=== PATIENT | female | born 1970 | race Caucasian/White ===

== ENCOUNTER 2021-10-29 11:21 | Outpatient (CLI) | payer OTHER, SELFPAY ==
--- NOTE | ~2021-10-29 | US_ITS ---
EXAMINATION: US transvaginal DATE: 10/29/2021 12:36 INDICATION: Left lower quadrant abdominal pain and abnormal uterine/vaginal bleeding. TECHNIQUE: Multiple transvaginal sonographic images of the pelvis were obtained. COMPARISON: None. FINDINGS: The uterus measures 7.4 x 4.3 x 4.9 cm. The endometrial complex measures 3-4 mm in thickness. 3 mm a nechoic nabothian cyst at the cervix. The right ovary measures 2.6 x 1.8 x 1.9 cm. The left ovary gricel sures 2.3 x 1.8 x 2.4 cm. 8-9 mm anechoic follicle in the left ovary. There is normal vascular flow w ith arterial waveforms identified in both ovaries on color Doppler. There is no free fluid in the pel vis. IMPRESSION: 1. Normal pelvic ultrasound. Reviewed, dictated and finalized at location B. TER MECHANIC
--- NOTE | ~2021-10-29 | US_ITS ---
EXAMINATION: US abdomen complete DATE: 10/29/2021 12:35 INDICATION: Left upper quadrant abdominal pain. TECHNIQUE: Multiple grayscale and Doppler ultrasound images of the abdomen were obtained. COMPARISON: None FINDINGS: The pancreas is obscured by bowel gas. The liver is normal without focal lesion. No liver s urface nodularity. There is normal flow in main portal vein. The gallbladder is absent. The common du ct is normal and measures 4 mm. The kidneys are normal in size. The spleen is normal in size. Abdomin al aorta is normal in caliber. Inferior vena cava is normal. IMPRESSION: 1. No etiology for the patient's symptoms. Reviewed, dictated and finalized at location A. AGE CLERK
== END 2021-10-29 11:22 | disposition home or self-care (01) ==
PROVIDERS: PCP Family Medicine Adolescent Medicine; Visit Provider Physician Assistant
DX: R10.12 Left upper quadrant pain (principal); R11.0 Nausea; N93.9 Abnormal uterine and vaginal bleeding, unspecified
CPT/HCPCS: 76700; 76830

== ENCOUNTER 2022-08-22 14:43 | Emergency (ER) | payer OTHER, SELFPAY ==
[2022-08-22 14:53] VITALS: BP 146/82; PULSE 70; RESP 20; TEMP 36.2; O2SAT 100
[2022-08-22] MEDS: SODIUM CHLORIDE 0.9% IV 1,000 ML 999 ML IV CONT (15:47)
[2022-08-22 15:48] VITALS: BP 120/83; BP 121/90; BP 130/88; PULSE 55; PULSE 60; PULSE 65
[2022-08-22 15:56] LABS: Basophils Absolute Auto 0.1 K/mm3 (0.0-0.1); Basophils Percent Auto 0.6 % (0.2-1.2); Eosinophils Absolute Auto 0.2 K/mm3 (0-0.3); Eosinophils Percent Auto 2.2 % (0-4.4); Hematocrit 34.3 % (37.0-47.0); Hemoglobin 10.6 g/dL (12.0-15.0); Immature Granulocyte Absolute 0.03 K/mm3 (0.00-0.031); Immature Granulocyte Percent A 0.3 % (0-0.5); Lymphocytes Absolute Auto 1.66 K/mm3 (0.9-3.2); Lymphocytes Percent Auto 16.4 % (18.3-44.2); Mean Corpuscular HGB Conc 30.9 g/dl (32-36); Mean Corpuscular Hemoglobin 27.2 pg (26-34); Mean Corpuscular Volume 88.2 fl (80-100); Mean Platelet Volume 9.1 fl (7.4-10.4); Monocytes Absolute Auto 0.6 K/mm3 (0.1-0.6); Monocytes Percent Auto 6.3 % (2.6-8.5); Neutrophils Absolute Auto 7.5 K/mm3 (1.3-6.7); Neutrophils Percent Auto 74.2 % (45.5-73.1); Platelet Count Result 311 k/mm3 (150-375); Red Blood Count 3.89 M/mm3 (4.2-5.4); Red Cell Distribution Width 15.9 % (11.5-14.5); White Blood Count 10.1 K/mm3 (4.5-10.0)
[2022-08-22 16:06] LABS: Partial Thromboplastin Time 27.3 SECONDS (22.3-36.8); Prothrombin Time 13.1 Seconds (11.1-14.7)
[2022-08-22 16:07] LABS: Anion Gap 12 mmol/L (8-16); Blood Urea Nitrogen 15 mg/dL (7-17); Calcium 8.4 mg/dL (8.4-10.2); Carbon Dioxide 26 mmol/L (22-30); Chloride 100 mmol/L (98-107); Estimated CRCL calculation 67 ml/min; Estimated Glomerular Filt Rate > 60; Glucose 109 mg/dL (65-110); Potassium 3.9 mmol/L (3.4-5.0); Sodium 138 mmol/L (137-145)
--- NOTE | 2022-08-22 16:52 | ED.FEMALEGU ---
HPI - Female Genitourinary General Chief complaint: Vaginal Bleeding Stated complaint: vaginal bleeding Time Seen by Provider: 08/22/22 15:09 History of Present Illness HPI Narrative: Patient is a 52-year-old female who presents to the ER with vaginal bleeding. Is been ongoing for 36 hours. She reports she is changing a tampon every hour and is having clots around it. She is doing feel weak and lightheaded. She was referred here by her art psychotherapist for evaluation of her blood counts. Patient has history of irregular periods and her last cycle was 3 months ago. She is having cramping with this. No known bleeding disorder. No loss of consciousness. Related Data Allergies Allergy/AdvReac Type Severity Reaction Status Date / Time No Known Allergies Allergy Verified 08/22/22 15:40 Review of Systems Review of Systems: All systems reviewed & are unremarkable except as noted in HPI and below Constitutional: Constitutional: Denies chills and Reports fatigue Cardiovascular: Cardiovascular: Denies chest pain, Denies rapid heart rate and Denies radiating jaw, neck or arm pain Respiratory: Respiratory: Denies cough and Denies dyspnea Gastrointestinal: Gastrointestinal: Reports abdominal pain, Denies nausea and Denies vomiting Genitourinary: Genitourinary: Reports abnormal vaginal bleeding, Denies nocturia and Denies dysuria PMFSH Past Medical History Medical History Chronic pain Low back pain Polycystic ovarian syndrome Surgical History Surgical History H/O gastric sleeve History of cholecystectomy Social History Social History Smoking status: Never smoker Alcohol intake: current Alcohol use details: rarely Substance use type: does not use Additional living arrangements comments: ex- and children Gender identity (if verbalized by the patient): Female Sexual Orientation (if Verbalized by the Patient): Straight or Heterosexual Spiritual care concerns: No Agree to blood products: Yes Exam Narrative: GENERAL: Well-appearing, well-nourished, and in no acute distress. HEAD: Normocephalic, atraumatic. CHEST: Clear to auscultation. No respiratory distress. HEART: Regular rate and rhythm. Normal peripheral pulses. ABDOMEN: Soft, nontender, nondistended. : Normal external genitalia. No amount of clotted blood within the vagina. Cervix open approximately 1 cm. No friability. EXTREMITIES: Normal range of motion. No edema. SKIN: Warm, dry, no rash. NEURO: Alert and oriented x3. PSYCH: Normal mood and affect. Course Course Emergency Course: Discussed case with Dr. Villela as above. Recommended placing patient on tranexamic acid 1300 mg 3 times daily for the next 5 days. Patient should contact the office for close follow-up. Patient verbalized understanding treatment plan. Discharge. Vital Signs Vital signs: Vital Signs Temperature 97.2 F L 08/22/22 14:53 Pulse Rate 70 08/22/22 14:53 Respiratory Rate 20 08/22/22 14:53 Blood Pressure 146/82 H 08/22/22 14:53 Pulse Oximetry 100 08/22/22 14:53 Oxygen Delivery Room Air 08/22/22 14:53 Temperature 97.2 F L 08/22/22 14:53 Pulse Rate 65 08/22/22 15:48 Respiratory Rate 20 08/22/22 14:53 Blood Pressure 121/90 08/22/22 15:48 Pulse Oximetry 100 08/22/22 14:53 Oxygen Delivery Room Air 08/22/22 14:53 MDM - Female Genitourinary Lab Data Result diagrams: 08/22/22 15:46 08/22/22 15:46 Labs: Lab Results 08/22/22 08/22/22 08/22/22 Range/Units 15:46 15:46 15:46 WBC 10.1 H (4.5-10.0) K/mm3 RBC 3.89 L (4.2-5.4) M/mm3 Hgb 10.6 L (12.0-15.0) g/dL Hct 34.3 L (37.0-47.0) % MCV 88.2 (80-100) fl MCH 27.2 (26-34) pg MCHC 30.9 L (32-36) g/dl RDW 15.9 H (11.5-14.5) % Plt
[2022-08-22 17:53] VITALS: BP 130/81; PULSE 60; RESP 18; O2SAT 100
== END 2022-08-22 18:02 | disposition home or self-care (01) ==
PROVIDERS: Emergency Provider Emergency Medicine; PCP Obstetrics & Gynecology
DX: N92.0 Excessive and frequent menstruation with regular cycle (principal); E28.2 Polycystic ovarian syndrome; Z98.84 Bariatric surgery status
CPT/HCPCS: 36415; 80048; 85025; 85610; 85730; 96360; 96361; 99284; J7030

== ENCOUNTER 2022-09-27 09:46 | Outpatient (CLI) | payer OTHER, SELFPAY | END 2022-09-27 09:47 | disposition home or self-care (01) | PROVIDERS: PCP Family Medicine Adolescent Medicine; Visit Provider Obstetrics & Gynecology | DX: N81.4 Uterovaginal prolapse, unspecified (principal); Z01.818 Encounter for other preprocedural examination | CPT/HCPCS: 36415; 86850; 86900; 86901 ==

== ENCOUNTER 2022-10-01 01:33 | Day surgery (SDC) | payer OTHER, SELFPAY ==
[2022-09-23 13:24] VITALS: BMI 31.8
--- NOTE | 2022-09-23 13:30 | PC.NURSE ---
Report to the Outpatient Waiting Room, entrance under the green pavilion located off [facility], at time 7:30 on date 10/01/22. Planned Procedure Time: 9:30. Time changes happen often and if your time is changed the preop area will call you the afternoon before. - You and your visitor will be asked to self-screen and do not enter if you have any COVID symptoms. - Only one visitor is requested with a max of two and NO children visitors are allowed at this time. - The patient visitor may be requested to leave or wait in car when not with patient due to distancing restrictions. - A mask is optional within the hospital. Patients may have clear liquids (water, carbonated beverages, clear teas, apple juice) until 3 hours prior to surgery (6:30) with a maximum of 20 ounces. - No food from midnight until time of surgery Take the following medications with a SIP of water the morning of surgery: LORAZEPAM AND PAIN PILL IF NEEDED Medications to discontinue per physician: N/A Date to take last dose: N/A Please no make-up, nail tunisian, hairspray, perfume, deodorant, or body powder the day of surgery. No jewelry (including any body piercings) or valuables the day of surgery, leave them at home. Please take a shower or bath the night before, or the morning of, surgery with an antibacterial soap. Wear comfortable, loose fitting clothing. - Jewelry must be removed prior to entering the operating room. Rings and piercings that are not removed may be cut off. - The hospital will not accept responsibility for valuables. - Please leave all valuables, including medications, at home the day of surgery. If you are going home after surgery, a licensed taxi truck driver must drive you home. - NO public transportation without another adult if you receive anesthesia. - We recommend that an adult stay with you for 24 hours following discharge. - We also recommend that you do not drive, make important decision, drink alcoholic beverages, or take any drugs that were not prescribed by your health care provider for at least 24 hours after your discharge time. Follow any additional instructions given to you from your surgeon. If you or anyone in your household have experienced Covid symptoms in the past week, please notify your surgeon or the nurse liaison at the phone number below for possible testing. Telephone instructions given to PT - LORENA RIBEIRO and asked if any additional questions and then verbalized understanding. Patient advised to call surgeon office or pre surgery nurse liaison [phone] if any additional questions.
--- NOTE | 2022-09-29 07:50 | PM.IMHP ---
H&P: HPI History of Present Illness Date/Time: 09/29/22 07:50 Chief Complaint: bleeding refractory to medical therapy Narrative: is a 52-year-old 1 para 1 who is admitted for robotic hysterectomy and bilateral Salpingo-oophorectomy secondary to continued irregular bleeding. this patient has had multiple episodes of heavy bleeding and has been on iron for her anemia. She has had negative findings under endometrium and has been unsuccessful with hormonal therapy. Risks and benefits of this procedure reviewed including not exclusive of , aspiration pneumonia, bleeding, transfusion, perforation injury to bowel, bladder, ureters, or other internal organs with need for open laparotomy. She received the ACOG handout entitled hysterectomy as well as de Al handout. She had all questions answered and asked to proceed PMFSH Past Medical History Medical History Chronic pain Low back pain Polycystic ovarian syndrome Surgical History Surgical History H/O gastric sleeve History of cholecystectomy Social History Social History Smoking status: Never smoker Alcohol intake: current Alcohol use details: RARE Substance use: current Substance use type: marijuana Additional living arrangements comments: ex- and children Gender identity (if verbalized by the patient): Female Sexual Orientation (if Verbalized by the Patient): Straight or Heterosexual Spiritual care concerns: No Agree to blood products: Yes Meds Home Medications and Allergies Home Medications Medication Instructions Recorded Confirmed Type ondansetron 4 mg disintegrating 4 mg PO Q8H PRN nausea and 07/15/22 09/23/22 Rx tablet vomiting #20 tabs fluticasone propionate 50 1 - 2 spray intranasal BID #16 mL 07/28/22 09/23/22 Rx mcg/actuation nasal spray,suspension (Flonase Allergy Relief) dextroamphetamine-amphetamine ER 20 mg PO DAILY #30 caps 07/30/22 09/23/22 Rx 20 mg 24hr capsule,extend release (Adderall XR) lorazepam 0.5 mg tablet 0.5 mg PO TID PRN anxiety #30 tabs 09/02/22 09/23/22 Rx triamcinolone acetonide 0.1 % 1 applic topical BID #80 grams 09/02/22 09/23/22 Rx topical cream oxycodone-acetaminophen 10 mg-325 1 tablet PO Q6H PRN pain #120 tabs 09/15/22 09/23/22 Rx mg tablet Allergies Allergy/AdvReac Type Severity Reaction Status Date / Time No Known Allergies Allergy Verified 09/23/22 13:21 Exam Const: General: cooperative, healthy appearing, comfortable and overweight Orientation/consciousness: oriented to person, oriented to place and oriented to time HENMT: Head: normal to inspection Resp: Effort & Inspection: normal respiratory effort Cardio: Rate: regular rate Rhythm: regular rhythm Heart sounds: S1 normal heart sound present and S2 normal heart sound present GI: Inspection: normal to inspection, striae and other ( excess skin noted) : External Female Exam: normal external appearance Speculum Exam - Vagina: normal appearance of the vagina and vaginal bleeding Speculum Exam - Cervix: normal appearance of the cervix Bimanual exam- vagina & uterus: non-tender Bimanual Exam- Adnexa, other: normal adnexae Assessment and Plan Assessment and plan (1) Vaginal bleeding: Code(s): N93.9 - Abnormal uterine and vaginal bleeding, unspecified Status: Acute (2) Enlarged uterus: Code(s): N85.2 - Hypertrophy of uterus Status: Acute Plan robotic total vaginal hysterectomy and bilateral salpingo-oophorectomy
[2022-10-01] VITALS (11 sets, daily range): BP systolic 109–162; BP diastolic 60–87; PULSE 44–79; RESP 12–16; TEMP 36.3–36.8; O2SAT 96–100
--- NOTE | 2022-10-01 07:13 | WPDHPUPDATE1 ---
History and Physical Update Update Date/Time: 10/01/22 07:13 History and Physical has been reviewed, including an updated exam of the patient. There are NO changes in the patient's condition. Risks, benefits, and alternatives have been discussed and questions answered. Patient agrees to proceed with procedure.
--- NOTE | 2022-10-01 08:12 | WPDANESEPPF ---
Anes - Initial Pre Proc Eval Procedure: Operation Date: 10/01/22 09:30 Proposed Procedures p Robotic Assisted Total Vaginal Hysterectomy with Bilateral Salpingo-oophorectomy - Jose Zelaya MD Date/Time: 10/01/22 08:12 Surgeon: Jose Zelaya MD Pre Op Diagnosis: Uterine Prolapse, Irrg Bleed, Pelvic Pain Patient Data Age: 52 Gender: F Height: 1.6 m Weight: 81.7 kg Allergies Allergy/AdvReac Type Severity Reaction Status Date / Time No Known Allergies Allergy Verified 10/01/22 07:59 Home Medications Medication Instructions Recorded Confirmed Type ondansetron 4 mg disintegrating 4 mg PO Q8H PRN nausea and 07/15/22 10/01/22 Rx tablet vomiting #20 tabs fluticasone propionate 50 1 - 2 spray intranasal BID #16 mL 07/28/22 09/23/22 Rx mcg/actuation nasal spray,suspension (Flonase Allergy Relief) dextroamphetamine-amphetamine ER 20 mg PO DAILY #30 caps 07/30/22 10/01/22 Rx 20 mg 24hr capsule,extend release (Adderall XR) lorazepam 0.5 mg tablet 0.5 mg PO TID PRN anxiety #30 tabs 09/02/22 10/01/22 Rx triamcinolone acetonide 0.1 % 1 applic topical BID #80 grams 09/02/22 10/01/22 Rx topical cream oxycodone-acetaminophen 10 mg-325 1 tablet PO Q6H PRN pain #120 tabs 09/15/22 10/01/22 Rx mg tablet hydrocodone 5 mg-acetaminophen 325 1 tablet PO Q4H PRN pain #30 tabs 10/01/22 Rx mg tablet hydrocodone 5 mg-acetaminophen 325 1 tablet PO Q4H PRN pain #30 tabs 10/01/22 Rx mg tablet Patient hx anesthesia problems: post op nausea/vomiting Family hx anesthesia problems: post op nausea/vomiting Results Review: All pre-operative results and documents have been reviewed as part of the pre-operative evaluation. [facility] Past Medical History Medical History ADHD (attention deficit hyperactivity disorder), inattentive type Anxiety Chronic pain Low back pain Polycystic ovarian syndrome Surgical History Surgical History H/O gastric sleeve History of cholecystectomy Social History Social History Smoking status: Never smoker Alcohol intake: current Alcohol use details: RARE Substance use: current Substance use type: marijuana Living arrangements: with family Additional living arrangements comments: ex- and children Gender identity (if verbalized by the patient): Female Sexual Orientation (if Verbalized by the Patient): Straight or Heterosexual Spiritual care concerns: No Agree to blood products: Yes Anes - Eval Final PreProcedure Day of Procedure 10/01/22 08:12 Patient weight: obese Heart: regular rate and rhythm Lungs: clear to auscultation Airway: Mallampati scale class III Neurological: alert and oriented Last oral intake: >/= 8 hours ASA classification: III Emergent: no Anesthetic plan: proceed Anesthesia type and monitoring: general ETT and standard monitoring Results Review: All pre-operative results and documents have been reviewed as part of the pre-operative evaluation. Informed Consent: The patient's anesthetic plan and its attendant risks and benefits were discussed with the patient/family/POA. Questions were solicited and answers provided to the satisfaction of the patient/family/POA.
[2022-10-01] MEDS: LACTATED RINGERS 1,000 ML 30 ML IV CONT ×2 (08:20→10:40)
[2022-10-01] MEDS: SCOPOLAMINE 1.5 MG PATCH TRANSDERM (09:03)
[2022-10-01] MEDS: KETOROLAC 15 MG/ML VIAL (*BKC) IV PUSH (09:04)
[2022-10-01] MEDS: ceFAZolin 2 GM/D5W 50 ML 2 GM/50 ML BAG IVPB (09:28)
--- NOTE | 2022-10-01 10:34 | P.OP_ITS ---
Procedure Note - Detailed Date of Procedure 10/01/22 Pre-op Diagnosis Uterine Prolapse, Irrg Bleed, Pelvic Pain Post-op Diagnosis Same Procedure Performed Robotic total vaginectomy and bilateral salpingo-oophorectomy Surgeon Jose Zelaya MD Anesthesia General Indications is a 52-year-old female with excessive heavy bleeding and pelvic pain which has been refractory to medical therapy. Findings Enlarged uterus. Uterine prolapse. Normal-appearing ovaries and tubes Description of Procedure the patient was prepped draped in the normal sterile fashion placed in the dorsal lithotomy position. Under excellent general trach anesthesia weighted speculum placed in posterior fornix vagina. Anterior lip of the cervix grasped with single-tooth tenaculum. Uterus sounded to 10cm. Serial dilatation with fragmented dilators performed followed by passes the 8. MARY ELLEN and the 3. 0.5 cold cup. Next the 16 Divehi catheter was placed in the bladder and bladder drained of clear urine. The weighted speculum was removed as was the single- tooth and the gloves were changed. A supraumbilical incision made the Veress needle passed in the abdomen. Abdomen filled with CO2 gas to 15mm Hg. 5Mm trocar advanced in the abdomen. Downside visualized no injury seen. Gas reattached. Patient placed in Trendelenburg and right left lateral quadrant incision made. The 8mm trocars advanced under direct visualization of the right left lower quadrant. A right upper quadrant incision made the 8mm trocar advanced under direct visualization assuring no injury. Robot was docked. Attention was turned to the curriculum counselor. The left round ligament grasped, burned, cut. A bladder flap was formed by sharply dissecting the peritoneum and reflecting the bladder caudally from the uterus cervix to the opposite round ligament which was clamped, burned, cut. Next infundibulopelvic structure on the left was skeletonized clamped, burned, brought to the level of previously cut round ligament. Like fashion the right infundibulopelvic structure was skeletonized remove the right ovary tube clamped, burned, cut brought to the previously cut ligament. Next the cardinal broad ligaments on the left were serially skeletonized clamping burning and cutting until the uterine vessels could be seen on the left. These were large and tortuous and individually clamped, burned, cut. In like fashion the cardinal broad ligaments on the right were serially skeletonized clamped, burned, cut until the uterine vessels could be seen on the right. These were then clamped, burned, cut. Excellent blanching was seen at that point. And a colpotomy incision was made in the uterus cervix and tubes as well as ovaries removed through the vagina. The vagina was then closed with continuous running 0V lock from lateral edge to lateral edge back to the midline. Hemostasis was assured and blood loss estimated 25cc the robot was undocked. The gas removed from the abdomen. The trocars removed incisions closed with 4 Monocryl glue. The instruments removed from vagina patient was awakened. She went to recovery in satisfactory condition. All sponge, needle, instrument counts were correct. There were no immediate complications Estimated Blood Loss 25 Drains No Packing No Pathology Yes Complications No immediate complications Condition Stable Disposition PACU
[2022-10-01] MEDS: fentaNYL CITRATE INJ (*CRX) 100 MCG/2 ML VIAL 25 MCG IV PUSH ×7 (11:08→11:44)
[2022-10-01] MEDS: HYDROmorphone HCL INJ (*CRX) 1 MG/ML SYR IV PUSH ×2 (11:50→12:02)
[2022-10-01] MEDS: ONDANSETRON INJ 4 MG/2 ML VIAL IV PUSH (11:50)
--- NOTE | 2022-10-01 12:12 | PC.NURSE ---
This patient, June Smith, was received from PACU on 10/01/22 at 1212. Patient oriented to unit policies and routines. No family members at bedside.
[2022-10-01] MEDS: KETOROLAC 30 MG/ML VIAL (*BKC) IV PUSH ×2 (12:27→18:08)
[2022-10-01] MEDS: DEXTROSE 5%/LACTATED RINGERS 1,000 ML 125 ML IV CONT (12:30)
[2022-10-01] MEDS: HYDROcodone/acetaminophen (*CRX) 10-325 MG TABLET 1 TAB PO ×3 (14:56→20:59)
[2022-10-01] MEDS: SIMETHICONE 80 MG TAB.CHEW PO ×3 (14:56→20:59)
--- NOTE | 2022-10-01 14:59 | P.DS_ITS ---
DS: Admitting Diagnosis Discharge Date 10/02/2022 Admitting Diagnosis vaginal bleeding/enlarged uterus DS: Discharge Diagnosis Discharge Diagnosis (1) Enlarged uterus: Code(s): N85.2 - Hypertrophy of uterus Status: Acute (2) Vaginal bleeding: Code(s): N93.9 - Abnormal uterine and vaginal bleeding, unspecified Status: Acute DS: Summary Hospital Course Reason for hospitalization: patient was admitted for robotic total vaginal hysterectomy and bilateral salpingo-oophorectomy Hospital Course: patient underwent robotic total vaginal hysterectomy bilateral salpingo- oophorectomy on 10/01/2022. Hospital course was unremarkable. She remained afebrile. She was up, voiding without difficulty, ambulating, generally without complaints. Time Spent with Patient Time attestation: Total time spent providing and/or coordinating discharge services: Exam Const: General: cooperative, healthy appearing and comfortable Nutritional Appearance: average body habitus Orientation/consciousness: oriented to person, oriented to place and oriented to time HENMT: Head: normal to inspection Resp: Effort & Inspection: normal respiratory effort GI: Inspection: normal to inspection and incision ( Wounds are clean dry and intact) DS: Data Data Completed and Pending Pending studies at discharge: Pending at discharge 10/01/22 10:19 Surgical [PTH] Routine Discharge Plan Discharge Patient Disposition: Home, Self-Care Discharge Instructions: Call or return if temperature above 100.4? F, increased abdominal pain, increased vaginal bleeding or any new problems. Patient Instructions: Hysterectomy (DC) Stand Alone Forms: General Discharge Instructions Follow-up/Referrals: Jose Bustamante MD [Physician] - 2 Weeks Discharge Medications: New hydrocodone-acetaminophen 5-325 mg tablet 1 tablet PO Q4H PRN (Reason: pain) Qty: 30 0RF hydrocodone-acetaminophen 5-325 mg tablet 1 tablet PO Q4H PRN (Reason: pain) Qty: 30 0RF ondansetron 4 mg tablet,disintegrating 4 mg PO Q6H PRN (Reason: nausea and vomiting) Qty: 20 0RF estradiol 0.05 mg/24 hr patch weekly 1 patch transdermal WEEKLY Qty: 4 0RF Continued fluticasone propionate [Flonase Allergy Relief] 50 mcg/actuation spray,suspension 1 - 2 spray intranasal BID Qty: 16 3RF Label Comments: PT DOES NOT TAKE DAILY Rx Instructions: administer into each nostril ondansetron 4 mg tablet,disintegrating 4 mg PO Q8H PRN (Reason: nausea and vomiting) Qty: 20 0RF dextroamphetamine-amphetamine [Adderall XR] 20 mg capsule,extended release 24hr 20 mg PO DAILY Qty: 30 0RF Label Comments: PT DOES NOT TAKE DAILY lorazepam 0.5 mg tablet 0.5 mg PO TID PRN (Reason: anxiety) Qty: 30 2RF Rx Instructions: take 1/2 to 1 tablet three times daily as needed triamcinolone acetonide 0.1 % cream 1 applic topical BID Qty: 80 1RF oxycodone-acetaminophen 10-325 mg tablet 1 tablet PO Q6H PRN (Reason: pain) Qty: 120 0RF
[2022-10-01] MEDS: ALPRAZolam (*CRX) 0.5 MG TABLET PO (22:31)
[2022-10-02] MEDS: ALPRAZolam (*CRX) 0.5 MG TABLET PO (00:08)
[2022-10-02 03:00] VITALS: BP 107/62; PULSE 69; RESP 16; TEMP 36.7
[2022-10-02] MEDS: HYDROcodone/acetaminophen (*CRX) 10-325 MG TABLET 1 TAB PO ×3 (03:10→07:14)
[2022-10-02] MEDS: SIMETHICONE 80 MG TAB.CHEW PO ×3 (03:10→07:14)
[2022-10-02 05:29] LABS: Basophils Absolute Auto 0.1 K/mm3 (0.0-0.1); Basophils Percent Auto 0.3 % (0.2-1.2); Eosinophils Percent Auto 0.1 % (0-4.4); Hematocrit 29.9 % (37.0-47.0); Hemoglobin 9.2 g/dL (12.0-15.0); Immature Granulocyte Absolute 0.07 K/mm3 (0.00-0.031); Immature Granulocyte Percent A 0.5 % (0-0.5); Lymphocytes Absolute Auto 1.67 K/mm3 (0.9-3.2); Lymphocytes Percent Auto 11.1 % (18.3-44.2); Mean Corpuscular HGB Conc 30.8 g/dl (32-36); Mean Corpuscular Volume 87.7 fl (80-100); Mean Platelet Volume 9.8 fl (7.4-10.4); Monocytes Percent Auto 6.5 % (2.6-8.5); Neutrophils Absolute Auto 12.3 K/mm3 (1.3-6.7); Neutrophils Percent Auto 81.5 % (45.5-73.1); Platelet Count Result 271 k/mm3 (150-375); Red Blood Count 3.41 M/mm3 (4.2-5.4); Red Cell Distribution Width 13.2 % (11.5-14.5); White Blood Count 15.1 K/mm3 (4.5-10.0)
[2022-10-02] MEDS: KETOROLAC 30 MG/ML VIAL (*BKC) IV PUSH ×2 (07:14)
[2022-10-02 07:30] VITALS: BP 97/53; PULSE 48; RESP 16; TEMP 36.6; O2SAT 95
--- NOTE | 2022-10-02 08:41 | PM.GYNPNOP ---
[employer] - A/P Assessment and plan (1) Vaginal bleeding: Code(s): N93.9 - Abnormal uterine and vaginal bleeding, unspecified Status: Acute Assessment and Plan: A: POD#1, s/p robotic assisted TVHBSO, doing well. P: Home to f/u 2 weeks. (2) Enlarged uterus: Code(s): N85.2 - Hypertrophy of uterus Status: Acute Postoperative Procedures: Procedures Operation Date: 10/01/22 09:30 Actual Procedure Side Surgeon p Robotic Assisted Total Vaginal Hysterectomy with Bilateral Salpingo-oophorectomy Bilateral Jose Zelaya MD Time Spent With Patient Time: Total time spent is greater than 50% in coordination of care (as documented) at patient's floor/unit and/or counseling patient: Time with patient: less than 15 minutes [employer]- PN:Subj Post-Op Subjective Date/time seen: 10/02/22 08:41 Interval history: Pain OK. Tolerating diet. Voiding. Would like to go home. Exam Narrative: AVSS I/O OK ABD soft, nontender. Incisions c/d/i. EXT nontender [employer] - PN: Obj Data Vital Signs Vital Signs: Vital Signs - 24 hr 10/01/22 10:40 10/01/22 10:55 10/01/22 11:10 Temperature 36.8 C Pulse Rate 44 L 55 L 47 L Respiratory Rate 16 16 16 Blood Pressure 142/79 H 151/83 H 147/77 H Pulse Oximetry 100 100 100 Oxygen Delivery Simple Face Mask Simple Face Mask Simple Face Mask Oxygen Flow Rate 8 8 8 10/01/22 11:20 10/01/22 11:25 10/01/22 11:40 Temperature Pulse Rate 54 L 53 L Respiratory Rate 12 16 Blood Pressure 150/81 H 142/78 H Pulse Oximetry 99 98 98 Oxygen Delivery Room Air Room Air Room Air Oxygen Flow Rate 10/01/22 11:55 10/01/22 12:20 10/01/22 15:00 Temperature 36.3 C L 36.7 C Pulse Rate 54 L 54 L 79 Respiratory Rate 12 16 16 Blood Pressure 144/78 H 162/78 H 148/87 H Pulse Oximetry 96 100 97 Oxygen Delivery Room Air Oxygen Flow Rate 10/01/22 19:00 10/02/22 03:00 Temperature 36.8 C 36.7 C Pulse Rate 65 69 Respiratory Rate 16 16 Blood Pressure 109/60 107/62 Pulse Oximetry Oxygen Delivery Oxygen Flow Rate Intake/Output Intake/Output: Intake & Output 09/29/22 09/30/22 10/01/22 10/02/22 23:59 23:59 23:59 23:59 Intake Total 2049 1999 Output Total 0 1000 Balance -300 1000 Meds/Results Medications: Active Medications Generic Name Dose Route Start Last Admin Trade Name Freq PRN Reason Stop Dose Admin Hydrocodone Bitart/Acetaminophen 1 tab 10/01/22 12:08 Hydrocodone/Acetaminophen (*Crx) 5-325 Mg Tablet PO Q3H PRN Pain Rated 5 or Less Hydrocodone Bitart/Acetaminophen 1 tab 10/01/22 12:08 10/02/22 07:14 Hydrocodone/Acetaminophen (*Crx) 10-325 Mg Tablet PO 1 tab Q3H PRN Administration Pain Rated 6 or Greater Alprazolam 0.5 mg 10/01/22 22:08 10/02/22 00:08 Alprazolam (*Crx) 0.5 Mg Tablet PO 0.25 mg TID PRN Administration Anxiety Docusate Sodium 100 mg 10/01/22 17:00 10/01/22 21:03 Docusate Sodium 100 Mg Capsule PO Not Given BID [facility] Enoxaparin Sodium 40 mg 10/02/22 09:00 Enoxaparin 40 Mg/0.4 Ml Syringe SUB-Q DAILY [facility] Ibuprofen 600 mg 10/01/22 12:08 Ibuprofen 600 Mg Tablet PO Q6H PRN Cramping Ketorolac Tromethamine 30 mg 10/01/22 12:08 10/02/22 07:14 Ketorolac 30 Mg/Ml Vial (*Bkc) IV PUSH 10/06/22 12:07 30 mg Q6H PRN Administration Pain Rated 4-6 Naloxone HCl 0.1 mg 10/01/22 12:08 Naloxone Hcl 0.4 Mg/Ml Vial IV PUSH Q2M PRN Respiratory rate less than 10 Ondansetron HCl 4 mg 10/01/22 12:08 Ondansetron Inj 4 Mg/2 Ml Vial IV PUSH Q6H PRN Nausea And Vomiting Simethicone 80 mg 10/01/22 12:08 10/02/22 07:14 Simethicone 80 Mg Tab.Chew PO 80 mg Q2H PRN Administration Gas Labs 10/02/22 03:10 Labs: Laboratory Results - last 24 hr 10/02/22 03:10 WBC 15.1 H RBC 3.41 L Hgb 9.2 L Hct 29.9 L MCV 87.7 MCH 27.0 MCHC 30.8 L RDW 13.2 Plt Cou
--- NOTE | 2022-10-02 08:43 | P.DS_ITS ---
DS: Admitting Diagnosis Discharge Date 10/02/22 Admitting Diagnosis Heavy vaginal bleeding DS: Discharge Diagnosis Discharge Diagnosis (1) Vaginal bleeding: Code(s): N93.9 - Abnormal uterine and vaginal bleeding, unspecified Status: Acute (2) Enlarged uterus: Code(s): N85.2 - Hypertrophy of uterus Status: Acute DS: Summary Hospital Course Hospital Course: Admitted to the hospital on day of scheduled surgery. Did well postoperatively. Time Spent with Patient Time attestation: Total time spent providing and/or coordinating discharge services: DS: Data Data Completed and Pending Pending studies at discharge: Pending at discharge 10/01/22 10:19 Surgical [PTH] Routine Labs on day of discharge: Labs from last 24 hours 10/02/22 03:10 WBC 15.1 H RBC 3.41 L Hgb 9.2 L Hct 29.9 L MCV 87.7 MCH 27.0 MCHC 30.8 L RDW 13.2 Plt Count 271 MPV 9.8 Immature Gran % (Auto) 0.5 Neut % (Auto) 81.5 H Lymph % (Auto) 11.1 L [place] % (Auto) 6.5 Eos % (Auto) 0.1 Baso % (Auto) 0.3 Lymph # (Auto) 1.67 [place] # (Auto) 1.0 H Eos # (Auto) 0.0 Baso # (Auto) 0.1 Abs Immat Gran (auto) 0.07 H Absolute Neuts (auto) 12.3 H Absolute Nucleated RBC 0.0 Nucleated RBC % 0.0 Discharge Plan Discharge Patient Disposition: Home, Self-Care Discharge Instructions: Call or return if temperature above 100.4? F, increased abdominal pain, increased vaginal bleeding or any new problems. Stand Alone Forms: General Discharge Instructions Follow-up/Referrals: Jose Bustamante MD [Physician] - 2 Weeks Discharge Medications: New hydrocodone-acetaminophen 5-325 mg tablet 1 tablet PO Q4H PRN (Reason: pain) Qty: 30 0RF hydrocodone-acetaminophen 5-325 mg tablet 1 tablet PO Q4H PRN (Reason: pain) Qty: 30 0RF ondansetron 4 mg tablet,disintegrating 4 mg PO Q6H PRN (Reason: nausea and vomiting) Qty: 20 0RF estradiol 0.05 mg/24 hr patch weekly 1 patch transdermal WEEKLY Qty: 4 0RF Continued fluticasone propionate [Flonase Allergy Relief] 50 mcg/actuation spray,suspension 1 - 2 spray intranasal BID Qty: 16 3RF Label Comments: PT DOES NOT TAKE DAILY Rx Instructions: administer into each nostril ondansetron 4 mg tablet,disintegrating 4 mg PO Q8H PRN (Reason: nausea and vomiting) Qty: 20 0RF dextroamphetamine-amphetamine [Adderall XR] 20 mg capsule,extended release 24hr 20 mg PO DAILY Qty: 30 0RF Label Comments: PT DOES NOT TAKE DAILY lorazepam 0.5 mg tablet 0.5 mg PO TID PRN (Reason: anxiety) Qty: 30 2RF Rx Instructions: take 1/2 to 1 tablet three times daily as needed triamcinolone acetonide 0.1 % cream 1 applic topical BID Qty: 80 1RF oxycodone-acetaminophen 10-325 mg tablet 1 tablet PO Q6H PRN (Reason: pain) Qty: 120 0RF
[2022-10-02] MEDS: ENOXAPARIN 40 MG/0.4 ML SYRINGE SUB-Q (09:29)
[2022-10-02] MEDS: DOCUSATE SODIUM 100 MG CAPSULE PO (09:31)
--- NOTE | 2022-10-02 11:00 | WPDANESPN ---
Anes - Prog Note Post-Op Date/Time: 10/02/22 11:00 Cardiovascular status: normal Respiratory status: normal Airway patency: baseline Mental status: baseline Post-Op hydration status: normal Vital Signs: Last Vital Signs Temp 36.6 C 10/02/22 07:30 Pulse 48 L 10/02/22 07:30 Resp 16 10/02/22 07:30 BP 97/53 L 10/02/22 07:30 Pulse Ox 95 10/02/22 07:30 O2 Del Method Room Air 10/02/22 07:15 O2 Flow Rate 8 10/01/22 11:10 Pain Score (VAS): 12/03 I/O: Intake & Output 10/01/22 10/02/22 10/02/22 23:59 07:59 15:59 Intake Total 1000 2000 Output Total 1100 1000 Balance -100 1000 Laboratory Tests 10/02/22 03:10 10/02/22 03:10 WBC 15.1 H RBC 3.41 L Hgb 9.2 L Hct 29.9 L MCV 87.7 MCH 27.0 MCHC 30.8 L RDW 13.2 Plt Count 271 MPV 9.8 Immature Gran % (Auto) 0.5 Neut % (Auto) 81.5 H Lymph % (Auto) 11.1 L [place] % (Auto) 6.5 Eos % (Auto) 0.1 Baso % (Auto) 0.3 Lymph # (Auto) 1.67 [place] # (Auto) 1.0 H Eos # (Auto) 0.0 Baso # (Auto) 0.1 Abs Immat Gran (auto) 0.07 H Absolute Neuts (auto) 12.3 H Absolute Nucleated RBC 0.0 Nucleated RBC % 0.0 Post-procedural complaints: none Patient Feedback: Patient satisfied with anesthetic care.
[2022-10-02] MEDS: HYDROcodone/acetaminophen (*CRX) 5-325 MG TABLET 1 TAB PO (11:06)
== END 2022-10-02 13:00 | disposition home or self-care (01) ==
LOC: ANHSURGERY 09:02 → ANHOB2 12:13
PROVIDERS: PCP Family Medicine Adolescent Medicine; Visit Provider Obstetrics & Gynecology
PROC: (CPT 58552; principal; 2022-10-01 09:30)
DX: N81.4 Uterovaginal prolapse, unspecified (principal); N93.9 Abnormal uterine and vaginal bleeding, unspecified; N80.00 Endometriosis of the uterus, unspecified; D25.1 Intramural leiomyoma of uterus; N87.9 Dysplasia of cervix uteri, unspecified; N83.8 Other noninflammatory disorders of ovary, fallopian tube and broad ligament; E28.2 Polycystic ovarian syndrome; F90.0 Attention-deficit hyperactivity disorder, predominantly inattentive type; F41.9 Anxiety disorder, unspecified; M54.50 Low back pain, unspecified; G89.29 Other chronic pain; Z79.891 Long term (current) use of opiate analgesic; Z98.84 Bariatric surgery status; F12.90 Cannabis use, unspecified, uncomplicated; E66.9 Obesity, unspecified; Z68.33 Body mass index [BMI] 33.0-33.9, adult
CPT/HCPCS: 58552; S2900; 36415; 85025; 86850; 86900; 86901; 88307; 99199; A9270; J0690; J1100; J1170; J1650; J1885; J2250; J2405; J2704; J2710; J3010; J7030; J7120; J7121

== ENCOUNTER 2022-10-26 11:33 | Outpatient (CLI) | payer OTHER, MEDICAID, SELFPAY ==
--- NOTE | ~2022-10-26 | US_ITS ---
EXAMINATION: US pelvic complete w TV DATE: 10/26/2022 12:14 INDICATION: Postoperative pelvic bleeding. TECHNIQUE: Multiple transabdominal and transvaginal sonographic images of the pelvis were obtained. COMPARISON: None. FINDINGS: TRANSABDOMINAL ULTRASOUND: The uterus is absent. There is no free fluid in the pelvis. TRANSVAGINAL ULTRASOUND: The ovaries are not visualized. IMPRESSION: 1. No hematoma visualized. Reviewed, dictated and finalized at location A. FALLER IMPRESSION: 1. No hematoma visualized.
== END 2022-10-26 11:34 | disposition home or self-care (01) ==
PROVIDERS: PCP Family Medicine Adolescent Medicine; Visit Provider Obstetrics & Gynecology
DX: Z09 Encounter for follow-up examination after completed treatment for conditions other than malignant neoplasm (principal)
CPT/HCPCS: 76830; 76856

== ENCOUNTER 2022-10-29 01:45 | Day surgery (SDC) | payer OTHER, MEDICAID, SELFPAY ==
[2022-10-26 15:39] VITALS: BMI 32.9
--- NOTE | 2022-10-26 15:46 | PC.NURSE ---
Report to the Outpatient Waiting Room, entrance under the green pavilion located off [facility], at time 1315 on date 10/29/22. Planned Procedure Time: 1515. Time changes happen often and if your time is changed the preop area will call you the afternoon before. - You and your visitor will be asked to self-screen and do not enter if you have any COVID symptoms. - Only one visitor is requested with a max of two and NO children visitors are allowed at this time. - The patient visitor may be requested to leave or wait in car when not with patient due to distancing restrictions. - A mask is REQUIRED within the hospital. Patients may have clear liquids (water, carbonated beverages, clear teas, apple juice) until 3 hours prior to surgery with a maximum of 20 ounces. - No food from midnight until time of surgery Take the following medications with a SIP of water the morning of surgery: PAIN PILL AND LORAZEPAM IF NEEDED Medications to discontinue per physician: N/A Date to take last dose: N/A Please no make-up, nail portuguese, hairspray, perfume, deodorant, or body powder the day of surgery. No jewelry (including any body piercings) or valuables the day of surgery, leave them at home. Please take a shower or bath the night before, or the morning of, surgery with an antibacterial soap. Wear comfortable, loose fitting clothing. - Jewelry must be removed prior to entering the operating room. Rings and piercings that are not removed may be cut off. - The hospital will not accept responsibility for valuables. - Please leave all valuables, including medications, at home the day of surgery. If you are going home after surgery, a licensed uke driver must drive you home. - NO public transportation without another adult if you receive anesthesia. - We recommend that an adult stay with you for 24 hours following discharge. - We also recommend that you do not drive, make important decision, drink alcoholic beverages, or take any drugs that were not prescribed by your health care provider for at least 24 hours after your discharge time. Follow any additional instructions given to you from your surgeon. If you or anyone in your household have experienced Covid symptoms in the past week, please notify your surgeon or the nurse liaison at the phone number below for possible testing. Telephone instructions given to PT - LORENA RIBEIRO and asked if any additional questions and then verbalized understanding. Patient advised to call surgeon office or pre surgery nurse liaison [phone] if any additional questions.
--- NOTE | 2022-10-27 07:58 | PM.IMHP ---
H&P: HPI History of Present Illness Date/Time: 10/27/22 07:58 Chief Complaint: Vaginal bleeding Narrative: This 52-year-old female underwent robotic hysterectomy who has had vaginal spotting and bleeding since the procedure. Exam of the cough shows it to be intact however there is a raw spot in the midportion which has not responded to office cauterization. She is admitted for repair of this cuff PMFSH Past Medical History Medical History ADHD (attention deficit hyperactivity disorder), inattentive type Anxiety Chronic pain Low back pain Polycystic ovarian syndrome Surgical History Surgical History H/O gastric sleeve History of cholecystectomy History of hysterectomy with bilateral oophorectomy (09/2022) Social History Social History Smoking status: Never smoker Alcohol intake: current Alcohol use details: RARE Substance use: current Substance use type: marijuana Living arrangements: with family Additional living arrangements comments: ex- and children Gender identity (if verbalized by the patient): Female Sexual Orientation (if Verbalized by the Patient): Straight or Heterosexual Spiritual care concerns: No Agree to blood products: Yes Meds Home Medications and Allergies Home Medications Medication Instructions Recorded Confirmed Type ondansetron 4 mg disintegrating 4 mg PO Q8H PRN nausea and 07/15/22 10/26/22 Rx tablet vomiting #20 tabs fluticasone propionate 50 1 - 2 spray intranasal BID #16 mL 07/28/22 10/26/22 Rx mcg/actuation nasal spray,suspension (Flonase Allergy Relief) lorazepam 0.5 mg tablet 0.5 mg PO TID PRN anxiety #30 tabs 09/02/22 10/26/22 Rx triamcinolone acetonide 0.1 % 1 applic topical BID #80 grams 09/02/22 10/26/22 Rx topical cream estradiol 0.05 mg/24 hr weekly 1 patch transdermal WEEKLY #4 ea 10/01/22 10/26/22 Rx transdermal patch hydrocodone 5 mg-acetaminophen 325 1 tablet PO Q4H PRN pain #30 tabs 10/01/22 10/26/22 Rx mg tablet ondansetron 4 mg disintegrating 4 mg PO Q6H PRN nausea and 10/01/22 10/26/22 Rx tablet vomiting #20 tabs oxycodone-acetaminophen 10 mg-325 1 tablet PO Q6H PRN pain #120 tabs 10/11/22 10/26/22 Rx mg tablet dextroamphetamine-amphetamine ER 20 mg PO DAILY #30 caps 10/21/22 10/26/22 Rx 20 mg 24hr capsule,extend release (Adderall XR) Allergies Allergy/AdvReac Type Severity Reaction Status Date / Time No Known Allergies Allergy Verified 10/26/22 15:37 Exam Const: General: cooperative, healthy appearing and comfortable Nutritional Appearance: average body habitus Orientation/consciousness: oriented to person, oriented to place and oriented to time HENMT: Head: normal to inspection Resp: Effort & Inspection: normal respiratory effort Cardio: Rate: regular rate Rhythm: regular rhythm Heart sounds: S1 normal heart sound present and S2 normal heart sound present GI: Inspection: normal to inspection Percussion: Yes normal to percussion Auscultation: normal bowel sounds : External Female Exam: normal external appearance Speculum Exam - Vagina: normal appearance of the vagina Speculum Exam - Cervix: Cervix absent and Other cervical findings present (Vaginal cuff is raw at the midportion) Bimanual exam- vagina & uterus: uterus absent Bimanual Exam- Adnexa, other: normal adnexae Assessment and Plan Assessment and plan (1) Vaginal bleeding: Code(s): N93.9 - Abnormal uterine and vaginal bleeding, unspecified Status: Acute Plan Repair of vaginal cuff laceration
--- NOTE | 2022-10-28 12:13 | WPDANESEPPF ---
Anes - Initial Pre Proc Eval Procedure: Operation Date: 10/29/22 15:15 Proposed Procedures p Repair of Vaginal Cuff - Jose Zelaya MD Date/Time: 10/28/22 12:13 Surgeon: Jose Zelaya MD Pre Op Diagnosis: Vag Cuff Laceration Patient Data Age: 52 Gender: F Height: 1.6 m Weight: 84.4 kg Allergies Allergy/AdvReac Type Severity Reaction Status Date / Time No Known Allergies Allergy Verified 10/26/22 15:37 Home Medications Medication Instructions Recorded Confirmed Type ondansetron 4 mg disintegrating 4 mg PO Q8H PRN nausea and 07/15/22 10/26/22 Rx tablet vomiting #20 tabs fluticasone propionate 50 1 - 2 spray intranasal BID #16 mL 07/28/22 10/26/22 Rx mcg/actuation nasal spray,suspension (Flonase Allergy Relief) lorazepam 0.5 mg tablet 0.5 mg PO TID PRN anxiety #30 tabs 09/02/22 10/26/22 Rx triamcinolone acetonide 0.1 % 1 applic topical BID #80 grams 09/02/22 10/26/22 Rx topical cream estradiol 0.05 mg/24 hr weekly 1 patch transdermal WEEKLY #4 ea 10/01/22 10/26/22 Rx transdermal patch hydrocodone 5 mg-acetaminophen 325 1 tablet PO Q4H PRN pain #30 tabs 10/01/22 10/26/22 Rx mg tablet ondansetron 4 mg disintegrating 4 mg PO Q6H PRN nausea and 10/01/22 10/26/22 Rx tablet vomiting #20 tabs oxycodone-acetaminophen 10 mg-325 1 tablet PO Q6H PRN pain #120 tabs 10/11/22 10/26/22 Rx mg tablet dextroamphetamine-amphetamine ER 20 mg PO DAILY #30 caps 10/21/22 10/26/22 Rx 20 mg 24hr capsule,extend release (Adderall XR) hydrocodone 5 mg-acetaminophen 325 1 tablet PO Q4H PRN pain #20 tabs 10/29/22 Rx mg tablet Patient hx anesthesia problems: post op nausea/vomiting Family hx anesthesia problems: none Results Review: All pre-operative results and documents have been reviewed as part of the pre-operative evaluation. [facility] Past Medical History Medical History (Updated 10/28/22 @ 12:14 by Andrea Martinez DO) ADHD (attention deficit hyperactivity disorder), inattentive type Anxiety Chronic pain Low back pain Polycystic ovarian syndrome PONV (postoperative nausea and vomiting) Surgical History Surgical History H/O gastric sleeve History of cholecystectomy History of hysterectomy with bilateral oophorectomy (09/2022) Social History Social History Smoking status: Never smoker Alcohol intake: current Alcohol use details: RARE Substance use: current Substance use type: marijuana Living arrangements: with family Additional living arrangements comments: ex- and children Gender identity (if verbalized by the patient): Female Sexual Orientation (if Verbalized by the Patient): Straight or Heterosexual Spiritual care concerns: No Agree to blood products: Yes Anes - Eval Final PreProcedure Day of Procedure 10/28/22 12:13 Patient weight: obese Heart: regular rate and rhythm Lungs: clear to auscultation Airway: Mallampati scale class II Neurological: alert and oriented Last oral intake: >/= 8 hours ASA classification: III Emergent: no Anesthetic plan: proceed Anesthesia type and monitoring: general LMA and standard monitoring Results Review: All pre-operative results and documents have been reviewed as part of the pre-operative evaluation. Informed Consent: The patient's anesthetic plan and its attendant risks and benefits were discussed with the patient/family/POA. Questions were solicited and answers provided to the satisfaction of the patient/family/POA.
[2022-10-29] VITALS (12 sets, daily range): BP systolic 107–159; BP diastolic 59–96; PULSE 36–95; RESP 12–16; TEMP 36.4–36.5; O2SAT 90–100
--- NOTE | 2022-10-29 06:23 | WPDHPUPDATE1 ---
History and Physical Update Update Date/Time: 10/29/22 06:23 History and Physical has been reviewed, including an updated exam of the patient. There are NO changes in the patient's condition. Risks, benefits, and alternatives have been discussed and questions answered. Patient agrees to proceed with procedure.
[2022-10-29] MEDS: SCOPOLAMINE 1.5 MG PATCH TRANSDERM (13:10)
[2022-10-29] MEDS: LACTATED RINGERS 1,000 ML 30 ML IV CONT ×2 (13:10→15:10)
[2022-10-29] MEDS: ceFAZolin 2 GM/D5W 50 ML 2 GM/50 ML BAG IVPB (13:49)
--- NOTE | 2022-10-29 14:15 | W.PM.PROC2 ---
Procedure Note - Detailed Date of Procedure 10/29/22 Pre-op Diagnosis Vag Cuff Laceration Post-op Diagnosis Same Procedure Performed Repair of vaginal cuff Surgeon Jose Zelaya MD Anesthesia General Indications this is a 52-year-old female status post hysterectomy noted bleeding and was seen twice in the office. There was a small area at the top of the vaginal cuff which appeared to be raw and she asked that this be repaired. Findings Vaginal cuff was completely intact. There was 1 area midportion was. Description of Procedure Patient is prepped draped sterile fashion dorsal position. Anesthesia weighted speculum placed posterior fornix. The area at the cough had bleeding there were some stitches a shown it was. Two figure of 8 0 Vicryl were placed at the top after emptying bladder of clear. Blood loss is estimated 5cc. She was watched for 5 minutes bleeding was she was awakened and went recovery in satisfactory condition Estimated Blood Loss 5 Drains No Packing No Pathology None sent Complications No immediate complications Condition Stable Disposition PACU
[2022-10-29] MEDS: GLYCOPYRROLATE INJ (*SP) 0.2 MG/ML VIAL IV PUSH ×2 (14:56→15:30)
== END 2022-10-29 17:07 | disposition home or self-care (01) ==
PROVIDERS: PCP Family Medicine Adolescent Medicine; Visit Provider Obstetrics & Gynecology
PROC: (CPT 58260; principal; 2022-10-29 15:15)
DX: T81.31XA Disruption of external operation (surgical) wound, not elsewhere classified, initial encounter (principal); N93.9 Abnormal uterine and vaginal bleeding, unspecified; Z90.710 Acquired absence of both cervix and uterus; Y83.8 Other surgical procedures as the cause of abnormal reaction of the patient, or of later complication, without mention of misadventure at the time of the procedure; F90.9 Attention-deficit hyperactivity disorder, unspecified type; F41.9 Anxiety disorder, unspecified; E28.2 Polycystic ovarian syndrome; Z98.84 Bariatric surgery status; F12.90 Cannabis use, unspecified, uncomplicated; E66.9 Obesity, unspecified; Z68.30 Body mass index [BMI] 30.0-30.9, adult
CPT/HCPCS: 58999; A9270; J0690; J1100; J2250; J2405; J2704; J3010; J7120

== ENCOUNTER 2023-03-10 13:42 | Outpatient (CLI) | payer MEDICAID, SELFPAY ==
--- NOTE | ~2023-03-10 | CT_ITS ---
EXAMINATION: CT BRAIN W/O DATE: 03/10/2023 14:18 INDICATION: Progression of loss of memory TECHNIQUE: Computed tomography (CT) of the head was performed without intravenous contrast. The dose- length product was 605.33 mGy-cm. COMPARISON: No prior studies for comparison. FINDINGS: Normal brain parenchymal volume for age. Normal jones-white differentiation. No acute intrac ranial hemorrhage, infarction, mass or mass effect. No ventriculomegaly or midline shift. Midline sagittal images demonstrate a normal corpus callosum, c raniovertebral junction and sella turcica. Basilar cisterns are patent. Paranasal sinuses and mastoids are pneumatized. No depressed skull fractures. IMPRESSION: 1. No acute intracranial abnormality. Reviewed, dictated and finalized at location L.
== END 2023-03-10 13:43 | disposition home or self-care (01) ==
PROVIDERS: PCP Family Medicine Adolescent Medicine; Visit Provider Family Medicine Adolescent Medicine
DX: R41.3 Other amnesia (principal)
CPT/HCPCS: 70450

== ENCOUNTER 2023-03-23 11:07 | Outpatient (CLI) | payer MEDICAID, SELFPAY ==
--- NOTE | 2023-03-25 14:42 | WPDHOLTEREM ---
Holter/Event Monitor Holter/Event Monitor Date of procedure: 03/23/23 Holter/Event Procedure: 48 Hr Holter Monitor Indications: Bradycardia Conclusion: 1. 48 hour holter monitor on 03/23/23. 2. Underlying rhythm is sinus rhythm. HR range 38-124 bpm; average HR 58 bpm. HR at 38 bpm was at 08:46. 3. There are 7 premature supraventricular complexes and 1 supraventricular couplets. No supraventricular tachycardia. 4. There is 1 premature ventricular complex. No ventricular tachycardia. 5. No sinoatrial or atrioventricular blocks. No significant pauses greater than 2 seconds. 6. No symptoms available for correlation.
== END 2023-03-23 11:08 | disposition home or self-care (01) ==
PROVIDERS: PCP Family Medicine Adolescent Medicine; Visit Provider Family Medicine Adolescent Medicine
DX: R00.1 Bradycardia, unspecified (principal)
CPT/HCPCS: 93225; 93226

== ENCOUNTER 2023-06-28 15:18 | Emergency (ER) | payer OTHER, SELFPAY ==
--- NOTE | 2023-06-28 15:25 | ED.NAVMDI ---
HPI - Nausea/Vomiting/Diarrhea General Chief complaint: Nausea/Vomiting/Diarrhea Stated complaint: Nausea Time Seen by Provider: 06/28/23 15:27 Source: patient Mode of arrival: ambulatory Limitations: no limitations History of Present Illness HPI Narrative: June is a 52-year-old female patient presenting to the clinic today with complaints of dizziness and nausea for over 1 year however over the last 36 hours she has gotten increasingly worse. Has been seeing her PCP, OBGYN, and boat buffer plastic for this. Try to get a hold of her PCP today and they did not answer the phone. States that her dizziness is increased when she turns her head side to side. She reports when she stands up she also becomes dizzy. Has prescription for Zofran for nausea but has not taken any of it. Takes duloxetine and states that she has not taken this for the past few days. Takes oxycodone 2-4 times per day for chronic back pain. Is supposed to take iron pills for anemia however she does not like to take this as it causes her constipation. History of bradycardia, anemia, mitral valve prolapse, and orthostatic hypotension. Related Data Home Medications Medication Instructions Recorded Confirmed estradiol 1 mg tablet 3 mg PO DAILY 05/10/23 06/28/23 ondansetron 4 mg disintegrating 4 mg PO PRN PRN Nausea 06/28/23 06/28/23 tablet oxycodone-acetaminophen 10 mg-325 1 tablet PO Q4-6H 06/28/23 06/28/23 mg tablet Allergies Allergy/AdvReac Type Severity Reaction Status Date / Time paroxetine [From Paxil] AdvReac Intermediate Nausea Verified 06/28/23 15:20 [facility] Past Medical History Medical History ADHD (attention deficit hyperactivity disorder), inattentive type Anxiety Chronic pain Low back pain Polycystic ovarian syndrome PONV (postoperative nausea and vomiting) Surgical History Surgical History H/O gastric sleeve History of cholecystectomy History of hysterectomy with bilateral oophorectomy (09/2022) Social History Social History Smoking status: Never smoker Alcohol intake: current Alcohol use details: RARE Substance use: current Substance use type: marijuana Living arrangements: with family Additional living arrangements comments: ex- and children Occupation/Education: occupation Gender identity (if verbalized by the patient): Female Sexual Orientation (if Verbalized by the Patient): Straight or Heterosexual Spiritual care concerns: No Agree to blood products: Yes Comments At the time of my signature, I reviewed and agree with the nursing past medical, surgical, social, and family history. There is no relevant family history pertinent to the patient complaint. Exam Narrative: General: Well-developed, well nourished, in no apparent distress Head: Normocephalic, atraumatic Eyes: Pupils equally round and reactive to light bilaterally, EOM intact, sclera and conjunctive clear, no discharge, lids normal, no nystagmus Ears: TMs intact and clear, ear canals clear, no drainage, grossly hearing normal. Nose: Nares patent, no discharge, no inflammation, no sinus tenderness. Mouth: Oropharynx without lesions or masses, good dentition, MMM. Tongue midline, even rise and fall of uvula Neck: Supple, trachea midline, no enlargement of anterior or posterior cervical nodes, no thyroid masses or goiter palpable. Cardio: Bradycardic- regular rate and rhythm, s1 and s2 normal, no murmur appreciated. Resp: Clear to auscultation bilaterally anteriorly and posteriorly, no rhonchi, rales, wheezing or rubs Musculoskeletal: No deformity, non-tender to palpation, grossly normal range of motion, muscle strength strong and equal, peripheral pulse strong, no edema, no cyanosis, normal gait and station Neuro: Alert and oriented x4 with normal speec
[2023-06-28 15:32] VITALS: BP 143/89; PULSE 76; RESP 18; TEMP 36.4; O2SAT 99
--- NOTE | 2023-06-28 15:44 | ECG_ITS ---
Measurements Intervals [place] Rate: 55 P: 13 AR: 193 QRS: 15 QRSD: 90 T: 53 QT: 411 QTc: 396 Interpretive Statements SINUS BRADYCARDIA WITH SINUS ARRHYTHMIA BORDERLINE ECG NO PREVIOUS ECG AVAILABLE FOR COMPARISON Electronically Signed On 06-28-2023 15:57:52 CDT by Daniel Dumont D.O.
[2023-06-28 15:53] LABS: Glucose Point of Care 83 mg/dl (65-105)
[2023-06-28 16:12] VITALS: BP 137/87; BP 148/94; PULSE 55
[2023-06-28 16:13] VITALS: BP 149/91; PULSE 62
== END 2023-06-28 16:28 | disposition home or self-care (01) ==
PROVIDERS: Emergency Provider Nurse Practitioner Family; PCP Family Medicine Adolescent Medicine
DX: R42 Dizziness and giddiness (principal); R11.0 Nausea; E28.2 Polycystic ovarian syndrome; Z98.84 Bariatric surgery status; F90.9 Attention-deficit hyperactivity disorder, unspecified type; F41.9 Anxiety disorder, unspecified
CPT/HCPCS: 81003; 82948; 87426; 93005; 99213; C9803; G0463

== ENCOUNTER 2023-06-30 12:58 | Outpatient (CLI) | payer OTHER, SELFPAY ==
--- NOTE | ~2023-06-30 | XR_ITS ---
EXAMINATION:XR_CERV2-3V_CR DATE: 06/30/2023 13:25 INDICATION: Neck pain TECHNIQUE: AP, lateral, and odontoid views of the cervical spine are provided. COMPARISON: None FINDINGS: There is reversal of normal cervical lordosis. There are 2 mm of anterolisthesis of C3 on C 4. The odontoid process is intact. No fracture is identified. The vertebral body heights are maintain ed. There is mild loss of intervertebral disc space height at C5-C6 and C6-7. There is mild multileve l facet and uncovertebral joint osteoarthritis. Prevertebral soft tissues are normal. IMPRESSION: 1. And mild cervical spondylosis without acute findings. Reviewed, dictated and finalized at location L.
--- NOTE | ~2023-06-30 | XR_ITS ---
EXAMINATION: XR thoracic spine 3V DATE: 06/30/2023 13:25 INDICATION: Thoracic spine pain TECHNIQUE: AP, lateral and lateral swimmer's views of the thoracic spine were obtained. COMPARISON: None. FINDINGS: Bone alignment is normal. There is no fracture. There is mild loss of intervertebral disc s pace height at multiple levels in the thoracic spine. Small degenerative osteophytes project from the anterior endplates of multiple vertebral bodies. Surgical clips in the right upper quadrant are like ly from prior cholecystectomy. IMPRESSION: 1. Mild thoracic spondylosis without acute findings. Reviewed, dictated and finalized at location L.
== END 2023-06-30 12:59 | disposition home or self-care (01) ==
PROVIDERS: PCP Family Medicine Adolescent Medicine; Visit Provider Nurse Practitioner Family
DX: M47.894 Other spondylosis, thoracic region (principal); M47.892 Other spondylosis, cervical region
CPT/HCPCS: 72040; 72072

== ENCOUNTER 2023-07-26 12:39 | Outpatient (CLI) | payer OTHER, SELFPAY ==
--- NOTE | 2023-07-26 | ECHO_ITS ---
Patient Info Name: June Smith Age: 53 years : 1970 Gender: Female Ht: 63 in Wt: 180 lbs BSA: 1.94 m2 HR: 86 bpm BP: 140 / 94 mmHg Heart Rhythm: Sinus Rhythm Technical Quality: Good Exam Date: 07/26/2023 1:08 PM Exam Location: [facility] Patient Status: Outpatient Admit Date: 07/26/2023 Staff Ordering Physician: Daniel Dumont DO Surgery Technician: Keith Suarez RDCS Attending Provider: Daniel Dumont DO Referring Physician: Tim HAILE; Exam Type: CA echo doppler color flow Study Info Indications - PERSONAL HISTORY OF OTHER DISEASE OF CIRCULARTORY SYS Complete two-dimensional, color flow and Doppler transthoracic echocardiogram is performed. Summary 1. Complete two-dimensional, color flow and Doppler transthoracic echocardiogram is performed. 2. Left ventricular chamber dimension is normal. 3. Left ventricular systolic function is normal, estimated at 65-70%. 4. The left ventricular diastolic function is normal. 5. E/e' 8 is minimally elevated. 6. There is trace tricuspid valve regurgitation. 7. No pulmonary hypertension, estimated pulmonary arterial systolic pressure is 21 mmHg. Left Ventricle E/e' 8 is minimally elevated. Left ventricular chamber dimension is normal. Left ventricular systolic function is normal, estimated at 65-70%. The left ventricular diastolic function is normal. Right Ventricle Right ventricular systolic function is normal and with normal TAPSE 2.1 cm. Right ventricular chamber dimension is normal. Left Atria Left atrial chamber dimension is normal. Right Atria Right atrial chamber dimension is normal. Aortic Valve The aortic valve is trileaflet. There is no aortic valve stenosis. There is no aortic valve regurgitation. Pulmonic Valve There is no pulmonic regurgitation. Mitral Valve There is no mitral valve stenosis. There is no mitral valve regurgitation. Tricuspid Valve There is trace tricuspid valve regurgitation. No pulmonary hypertension, estimated pulmonary arterial systolic pressure is 21 mmHg. Pericardium/Pleural There is no pericardial effusion. Inferior Vena Cava Normal inferior vena cava with >50% collapse upon inspiration consistent with normal right atrial pressure, 5 mmHg. Aorta The aortic root size at the sinus of Valsalva is normal. Left Ventricular Outflow Tract Name Value Normal LVOT 2D LVOT Diameter 1.8 cm LVOT Doppler LVOT Peak Gradient 6 mmHg LVOT Mean Gradient 4 mmHg LVOT VTI 28 cm LVOT VTI/AV VTI Ratio 0.9 LVOT Stroke Volume 73 ml LVOT CO 4.0 l/min LVOT CI 2.1 l/min/m2 Pulmonic Valve Name Value Normal RVOT Doppler RVOT Peak Gradient 2 mmHg PV Doppler
== END 2023-07-26 12:40 | disposition home or self-care (01) ==
LOC: ANHCARD 12:40
PROVIDERS: PCP Family Medicine Adolescent Medicine; Visit Provider Internal Medicine Cardiovascular Disease
DX: Z86.79 Personal history of other diseases of the circulatory system (principal)
CPT/HCPCS: 93306

== ENCOUNTER 2023-10-05 14:28 | Outpatient (CLI) | payer OTHER, SELFPAY ==
--- NOTE | ~2023-10-05 | XR_ITS ---
EXAMINATION: XR chest 2V DATE: 10/05/2023 14:46 INDICATION: Pneumonia, unspecified organism. TECHNIQUE: Frontal and lateral views of the chest were obtained. COMPARISON: Thoracic spine radiographs 06/30/23 FINDINGS: There are airspace opacities throughout right upper lobe. There are mild airspace opacities in the lower lung zones. There is a trace right pleural effusion. No pneumothorax. The heart size is normal. Surgical clips in the right upper quadrant are likely from cholecystectomy. IMPRESSION: 1. Pneumonia, worst in right upper lobe. Reviewed, dictated and finalized at location A. NER AND POLISHER
[2023-10-05 16:06] LABS: Hematocrit 32.2 % (37.0-47.0); Hemoglobin 10.1 g/dL (12.0-15.0); Mean Corpuscular HGB Conc 31.4 g/dl (32-36); Mean Corpuscular Hemoglobin 25.9 pg (26-34); Mean Corpuscular Volume 82.6 fl (80-100); Mean Platelet Volume 9.3 fl (7.4-10.4); Platelet Count Result 354 k/mm3 (150-375); Red Cell Distribution Width 15.5 % (11.5-14.5); White Blood Count 17.2 K/mm3 (4.5-10.0)
[2023-10-05 16:07] LABS: Alanine Aminotransferase 17 U/L (6-35); Albumin Level 3.2 g/dL (3.5-5.1); Alkaline Phosphatase 161 U/L (38-126); Anion Gap 9 mmol/L (8-16); Aspartate Amino Transferase 21 U/L (14-36); Bilirubin,Total 0.4 mg/dL (0.2-1.3); Blood Urea Nitrogen 32 mg/dL (7-17); Carbon Dioxide 27 mmol/L (22-30); Chloride 103 mmol/L (98-107); Estimated Glomerular Filt Rate 43; Glucose 103 mg/dL (65-110); Potassium 3.5 mmol/L (3.4-5.0); Sodium 139 mmol/L (137-145)
[2023-10-05 17:04] LABS: Band Neutrophils Percent 4 % (0-6); Eosinophils Absolute Manual 0.17 K/mm3 (0.02-0.5); Eosinophils Percent Manual 1 % (0-4); Lymphocytes Absolute Manual 2.23 K/mm3 (1.1-4.5); Monocytes Absolute Manual 0.68 K/mm3 (0.1-0.90); Monocytes Percent Manual 4 % (3-9); Neutrophils Percent Manual 78 % (46-73); Total Cells Counted 100
[2023-10-05 17:05] LABS: Anisocytosis 1+ (NORMAL); Hypochromasia 1+ (NORMAL); Platelet Estimate Adequate (Adequate); Schistocytes None Seen (NORMAL)
== END 2023-10-05 14:29 | disposition home or self-care (01) ==
PROVIDERS: PCP Family Medicine Adolescent Medicine; Visit Provider Nurse Practitioner Family
DX: J18.9 Pneumonia, unspecified organism (principal)
CPT/HCPCS: 36415; 71046; 80053; 85025

== ENCOUNTER 2023-10-06 10:45 | Inpatient (IN) | payer OTHER, SELFPAY ==
[2023-10-06] VITALS (12 sets, daily range): BP systolic 99–126; BP diastolic 58–78; PULSE 83–107; RESP 14–28; TEMP 36.5–36.7; O2SAT 96–100; BMI 33.7
--- NOTE | ~2023-10-06 | XR_ITS ---
EXAMINATION: XR chest 1V portable INDICATION: Cough and shortness of breath TECHNIQUE: Portable AP chest at 1326 hours COMPARISON: 10/08/2023 FINDINGS: Bilateral pneumonia persists with interval improvement, particularly in the right upper lob e. No worsening airspace opacities are identified. The cardiomediastinal silhouette is stable. No ple ural effusion or pneumothorax. Cholecystectomy clips are noted. IMPRESSION: 1. Bilateral pneumonia with interval improvement. Reviewed, dictated and finalized at location B. D COMMUNICATIONS MANAGER
--- NOTE | ~2023-10-06 | CT_ITS ---
EXAMINATION: CTA chest PE protocol DATE: 10/06/2023 13:45 INDICATION: Pneumonia. TECHNIQUE: Computed tomography angiography (CTA) of the chest was performed with 100 mL Omnipaque-350 intravenous contrast timed to evaluate the pulmonary arteries. Coronal maximum intensity projection 3D-reconstructions were created by the technologist. Automated exposure control and iterative reconst ruction technique were employed. The dose-length product was 546.99 mGy-cm. COMPARISON: Chest 2 views 10/05/2023 FINDINGS: There are airspace and groundglass opacities involving all lobes with air bronchograms, wor st in right upper lobe, consistent with pneumonia. There are trace pleural effusions. The heart size is normal. There is a trace pericardial effusion. There are changes of gastric sleeve procedure. Ther e is a small sliding hiatal hernia. There is no pulmonary embolus. There are changes of cholecystecto my. There is mild thoracic spondylosis. IMPRESSION: 1. No pulmonary embolus. 2. Bilateral pneumonia, worst in right upper lobe. Reviewed, dictated and finalized at location A. STAIN MIXER
--- NOTE | ~2023-10-06 | XR_ITS ---
XR chest 1V portable 10/08/2023 06:28 Indication: Shortness of breath Procedure: AP portable chest Comparison: 10/05/2023 Findings: Cardiomegaly. Persistent right upper lobe airspace consolidation. No significant effusion. No pneumothorax. No acute osseous abnormality. Shallow inspiration. Impression: 1: Persistent right upper lobe airspace consolidation which may represent pneumonia and/or atelectasi s. Reviewed, dictated and finalized at location A. ARE WORKER Impression: 1: Persistent right upper lobe airspace consolidation which may represent pneum onia and/or atelectasis.
--- NOTE | 2023-10-06 11:03 | ECG_ITS ---
Measurements Intervals [place] Rate: 102 P: 52 MS: 192 QRS: 24 QRSD: 79 T: 53 QT: 350 QTc: 457 Interpretive Statements SINUS TACHYCARDIA NONSPECIFIC T-WAVE ABNORMALITY ABNORMAL ECG COMPARED TO ECG 06/28/2023 15:53:55 SINUS TACHYCARDIA NOW PRESENT Electronically Signed On 10-06-2023 14:06:14 [employer] by Bobby Archibald M.D.
--- NOTE | 2023-10-06 11:56 | PC.NURSE ---
Pt requesting something to drink, complaining of dry mouth. This RN educates and provided pt with swabs to wet mouth.
--- NOTE | 2023-10-06 12:11 | ED.SOB ---
HPI - SOB/Dyspnea General Chief Complaint: Shortness of Breath/Dyspnea Stated Complaint: SOB Time Seen by Provider: 10/06/23 12:04 History of Present Illness HPI Narrative: Patient is a 53-year-old female with history of bradycardia, prior gastric sleeve here with shortness of breath. Patient states that the weekend after Thanksgi she began having some respiratory symptoms. She was diagnosed with COVID at that time. She notes she was ill for 10-12 days it had been improving until about 1 week ago. She notes that she started having chills, vomiting, cough, shortness of breath. She went and saw her primary care doctor this Tuesday where she was diagnosed with likely pneumonia and started on Levaquin. She has been adherent to this antibiotic. She initially felt better the day after starting antibiotics but then began feeling worse again 2 days ago. She ended up going and getting lab work and an x-ray which were ordered by her primary care doctor. She spoke with them yesterday over the phone and they recommended she come into the emergency department last night, she notes her significant shortness of breath and fatigue made it difficult for to come into the ER yesterday so she presented to the ER today. No prior history of CAD, PE, DVT. No blood thinner use. She notes that she has had a subjective fever, chills, diaphoresis. Related Data Home Medications Medication Instructions Recorded Confirmed estradiol 1 mg tablet 3 mg PO DAILY 05/10/23 10/03/23 omega 0-dfm-ihk-fish oil 1,000 mg 1 cap PO DAILY 09/08/23 10/03/23 (120 mg-180 mg) capsule (Fish Oil) Allergies Allergy/AdvReac Type Severity Reaction Status Date / Time paroxetine [From Paxil] AdvReac Intermediate Nausea Verified 10/03/23 11:24 Review of Systems Review of Systems: All systems reviewed & are unremarkable except as noted in HPI and below PMFSH Past Medical History Medical History (Updated 10/06/23 @ 14:56 by Jess Nance PA-C) ADHD (attention deficit hyperactivity disorder), inattentive type Anxiety Bradycardia Chronic pain Polycystic ovarian syndrome Surgical History Surgical History H/O gastric sleeve History of cholecystectomy History of hysterectomy with bilateral oophorectomy (09/2022) Social History Social History (Updated 10/06/23 @ 14:55 by Jess Nance PA-C) Social History: Surrogate medical decision maker: Philip Smith, spouse. Code status: Full code. Smoking status: Never smoker Alcohol intake: current Alcohol use details: RARE Substance use: current Substance use type: marijuana Living arrangements: with family Additional living arrangements comments: ex- and children Occupation/Education: occupation Spiritual care concerns: No Agree to blood products: Yes Exam Narrative: GENERAL: Well-appearing, well-nourished. HEAD: Normocephalic, atraumatic. EYES: PERRLA and EOMI. ENT: Nares clear. Mucous membranes moist. NECK: Supple. CHEST: Clear to auscultation. Tachypneic, 2-3 word dyspnea. No wheezing appreciated. HEART: Tachycardic. Normal peripheral pulses. ABDOMEN: Soft, nontender, nondistended. EXTREMITIES: Normal range of motion. No edema, no calf tenderness. SKIN: Warm, dry, no rash. NEURO: No focal deficits. Alert and oriented x3. PSYCH: Normal mood and affect. Course Course Emergency Course: Chart review performed. Patient here with SOB. PCP visit from 10/03 reviewed, they started her on levaquin. She appears to have had outpatient lab work and xr performed yesterday. CXR shows R upper lobe pneumonia. WBC 17.2, creat 1.3, baseline from the year prior appears to have been 0.9. Cardiology visit from 09/08/23 notes EF in July of this year was 65-70%. Patient seen evaluated, she is tachypneic and in mild respiratory distress. Concern for continued pneumonia verses PE/DVT given her work of breathing. ACS workup a
[2023-10-06] MEDS: LACTATED RINGERS 1,000 ML 999 ML IV CONT (12:55)
[2023-10-06] MEDS: ONDANSETRON INJ 4 MG/2 ML VIAL IV PUSH ×2 (12:56→15:25)
[2023-10-06] MEDS: MORPHINE SULFATE (*CRX) 4 MG/ML INJ IV PUSH ×2 (12:56→15:25)
[2023-10-06 13:05] LABS: Hematocrit 28.4 % (37.0-47.0); Hemoglobin 8.7 g/dL (12.0-15.0); Mean Corpuscular HGB Conc 30.6 g/dl (32-36); Mean Corpuscular Hemoglobin 25.4 pg (26-34); Platelet Count Result 299 k/mm3 (150-375); Red Blood Count 3.42 M/mm3 (4.2-5.4); Red Cell Distribution Width 15.8 % (11.5-14.5); White Blood Count 12.3 K/mm3 (4.5-10.0)
[2023-10-06 13:15] LABS: INR 1.1; Prothrombin Time 15.2 Seconds (11.1-14.7)
[2023-10-06 13:17] LABS: Lactic Acid Reflex 1.7 mmol/L (0.7-2.0)
[2023-10-06 13:18] LABS: Alanine Aminotransferase 16 U/L (6-35); Albumin Level 3.2 g/dL (3.5-5.1); Alkaline Phosphatase 141 U/L (38-126); Anion Gap 8 mmol/L (8-16); Aspartate Amino Transferase 22 U/L (14-36); Bilirubin,Total 0.3 mg/dL (0.2-1.3); Blood Urea Nitrogen 19 mg/dL (7-17); Calcium 8.7 mg/dL (8.4-10.2); Carbon Dioxide 29 mmol/L (22-30); Chloride 101 mmol/L (98-107); Estimated Glomerular Filt Rate 58; Glucose 91 mg/dL (65-110); Potassium 4.1 mmol/L (3.4-5.0); Sodium 138 mmol/L (137-145)
[2023-10-06 13:22] LABS: Influenza A QL RT-PCR Negative (Negative); Influenza B QL RT-PCR Negative (Negative); RSV RNA, RT-PCR Negative (Negative); SARS-CoV-2 RNA PCR Negative (Negative)
[2023-10-06 13:27] LABS: NT Pro B Type Natriuretic Pept 4580 pg/mL (19.9-100)
[2023-10-06 13:29] LABS: Band Neutrophils Percent 7 % (0-6); Eosinophils Absolute Manual 0.12 K/mm3 (0.02-0.5); Eosinophils Percent Manual 1 % (0-4); Hypochromasia 2+ (NORMAL); Metamyelocytes Percent 1 %; Monocytes Absolute Manual 0.86 K/mm3 (0.1-0.90); Monocytes Percent Manual 7 % (3-9); Neutrophils Absolute Manual 10.08 K/mm3 (1.7-7.2); Neutrophils Percent Manual 75 % (46-73); Platelet Estimate Adequate (Adequate); Schistocytes None Seen (NORMAL); Total Cells Counted 100
[2023-10-06 14:32] LABS: Troponin I 0.027 ng/mL (0.000-0.034)
--- NOTE | 2023-10-06 14:51 | PM.IMHP ---
H&P: HPI History of Present Illness Date/Time: 10/06/23 15:00 Chief Complaint: Shortness of breath. Narrative: This is a 53-year-old female with history of palpitations, anxiety, depression, and chronic back pain who presented to the emergency department via private vehicle for evaluation of shortness of breath. The patient provides the following history. She tested positive for COVID the weekend following gi and she did not feel well for upwards of 10 to 12 days. She felt okay for a couple of days however about 1 week ago she started to feel poorly again with chills, soaking sweats, cough, vomiting, and shortness of breath with exertion. She saw her doctor this past Tuesday, was diagnosed with pneumonia, and started on levofloxacin. She has been taking the antibiotics as prescribed and initially thought that she was feeling better however the last 2 days she has become increasingly weak and is feeling much worse. Outpatient chest x-ray taken yesterday showed multifocal pneumonia, worse in the right upper lobe. She was directed to the ED today due to worsening symptoms. She was afebrile on arrival with stable blood pressures. CTA of the chest was negative for pulmonary embolism but did note bilateral pneumonia, worst in the right upper lobe. COVID, influenza, and RSV were negative. She received a dose of ceftriaxone and doxycycline and she is being admitted in this setting for further treatment. Review of Systems Review of Systems: Twelve systems were reviewed. Weight has remained stable. No recent travel. No sick contacts. No concerns for aspiration. No known history MRSA. Oral intake is poor. No diarrhea. Except as documented, all other systems were reviewed and are negative. [facility] Past Medical History Medical History (Updated 10/06/23 @ 21:47 by Jess Nance PA-C) Anxiety Attention deficit disorder Bradycardia Chronic pain syndrome Chronic prescription opiate use Polycystic ovarian syndrome Surgical History Surgical History H/O gastric sleeve History of cholecystectomy History of hysterectomy with bilateral oophorectomy (09/2022) Social History Social History (Updated 10/06/23 @ 21:45 by Jess Nance PA-C) Social History: Surrogate medical decision maker: Philip Smith, ex-. Code status: Full code. Smoking status: Never smoker Alcohol intake: current Drinks per week: 1 Alcohol use details: RARE Substance use: never Substance use type: does not use Lack of Transportation: No Lack of Food: Never True Current Housing: I Have Housing Concerned About Future Housing: No Difficulty Paying Gas/Electric Bills: No Difficulty Paying for Meds: No Currently Unemployed: No Education: Master's Degree or Higher Difficulty w/ Childcare or Family Care: No Living arrangements: with family Additional living arrangements comments: ex- and children Spiritual care concerns: No Agree to blood products: Yes Meds Home Medications and Allergies Home Medications Medication Instructions Recorded Confirmed Type lorazepam 0.5 mg tablet 0.5 mg PO TID PRN anxiety #70 tabs 05/31/23 10/06/23 Rx cyclobenzaprine 10 mg tablet 10 mg PO .nightly PRN muscle spasm 06/29/23 10/06/23 Rx #30 tabs meclizine 25 mg tablet 25 mg PO BID PRN dizziness #30 tabs 06/29/23 10/06/23 Rx naloxone 4 mg/actuation nasal spray 4 mg intranasal Q2M PRN opioid 06/29/23 10/06/23 Rx overdose #2 ea ondansetron 4 mg disintegrating 4 mg PO BID PRN Nausea #30 tabs 06/29/23 10/06/23 Rx tablet fluticasone propionate 50 2 spray intranasal DAILY #48 grams 06/30/23 10/06/23 Rx mcg/actuation nasal spray,suspension triamcinolone acetonide 0.1 % 1 applic topical BID #80 grams 07/14/23 10/06/23 Rx topical cream oxycodone-acetaminophen 10 mg-325 1 tablet PO Q4-6H #120 tabs 09/19/23 10/06/23 Rx mg tablet Endocet 5 mg-325 mg
--- NOTE | 2023-10-06 15:03 | ECG_ITS ---
Measurements Intervals [place] Rate: 87 P: 35 ID: 176 QRS: 19 QRSD: 81 T: 45 QT: 378 QTc: 455 Interpretive Statements SINUS RHYTHM WITHIN NORMAL LIMITS COMPARED TO ECG 10/06/2023 10:57:19 T-WAVE ABNORMALITY HAS RESOLVED Electronically Signed On 10-07-2023 13:47:54 [employer] by Adonay Santamaria M.D.
[2023-10-06 15:24] LABS: CRP 31.1 mg/dL (<1.0)
[2023-10-06] MEDS: DOXYCYCLINE 100 MG/NS 100 ML 100 MG/100 ML BAG IVPB (15:30)
[2023-10-06 15:49] LABS: Troponin I 0.023 ng/mL (0.000-0.034)
[2023-10-06] MEDS: HYDROcodone/acetaminophen (*CRX) 10-325 MG TABLET 1 TAB PO (16:42)
--- NOTE | 2023-10-06 17:35 | ADMGEN ---
This patient, June Smith, was admitted to Medical Room 253-01. Patient/family oriented to hospital policies and general routines including ID bracelet, bed and alarms, visiting hours, pain management, procedures, bathroom and other care routines, personal items, smoking policy, room service/diet, and visiting hours. Information on how to activate the Rapid Response Team has been discussed. Patient/Family are encouraged to report perceived risks to care and to ask questions if they do not understand what they are told or what they should do.
[2023-10-06 18:55] LABS: Troponin I 0.022 ng/mL (0.000-0.034)
[2023-10-06] MEDS: guaiFENesin 12 HR 600 MG TABCR PO (22:02)
[2023-10-06] MEDS: MORPHINE SULFATE (*CRX) 2 MG/ML INJ IV PUSH (22:02)
[2023-10-06] MEDS: VANCOMYCIN 1,250 MG/NS 250 ML 1,250 MG/250 ML BAG 166.67 MG IVPB (22:43)
[2023-10-07] VITALS (9 sets, daily range): BP systolic 114–138; BP diastolic 57–76; PULSE 81–108; RESP 18–22; TEMP 36.3–37.1; O2SAT 95–97
[2023-10-07] MEDS: VANCOMYCIN 1,000 MG/NS 250 ML 1,000 MG/250 ML BAG 250 MG IVPB (00:23)
[2023-10-07 00:26] LABS: MRSA (PCR) NOT DETECTED (NOT DETECTE)
[2023-10-07] MEDS: oxyCODONE/ACETAMINOPHEN (*CRX) 5-325 MG TABLET 2 TABLET PO (00:26)
[2023-10-07] MEDS: IPRATROPIUM BR 0.02% INH SOLN 0.5 MG/2.5 ML VIAL INHALATION ×3 (02:21→20:16)
[2023-10-07] MEDS: ALBUTEROL SULFATE NEB 2.5 MG/3 ML INH INHALATION ×3 (02:21→20:16)
[2023-10-07] MEDS: MORPHINE SULFATE (*CRX) 2 MG/ML INJ IV PUSH ×4 (04:49→23:17)
[2023-10-07 05:51] LABS: Hematocrit 27.4 % (37.0-47.0); Hemoglobin 8.6 g/dL (12.0-15.0); Mean Corpuscular HGB Conc 31.4 g/dl (32-36); Mean Corpuscular Volume 82.8 fl (80-100); Mean Platelet Volume 9.2 fl (7.4-10.4); Platelet Count Result 251 k/mm3 (150-375); Red Blood Count 3.31 M/mm3 (4.2-5.4); Red Cell Distribution Width 15.9 % (11.5-14.5); White Blood Count 11.6 K/mm3 (4.5-10.0)
[2023-10-07 06:12] LABS: Anion Gap 5 mmol/L (8-16); Blood Urea Nitrogen 15 mg/dL (7-17); Calcium 8.6 mg/dL (8.4-10.2); Carbon Dioxide 26 mmol/L (22-30); Chloride 105 mmol/L (98-107); Estimated CRCL calculation 61 ml/min; Estimated Glomerular Filt Rate 58; Glucose 92 mg/dL (65-110); Magnesium 2.1 mg/dL (1.6-2.3); Potassium 4.2 mmol/L (3.4-5.0); Sodium 136 mmol/L (137-145)
[2023-10-07 06:13] LABS: Iron 28 ug/dL (37-170)
[2023-10-07 06:23] LABS: Percent Iron Saturation 11 % (20-50)
[2023-10-07 07:12] LABS: Folic Acid 8.5 ng/mL (2.76->20); Vitamin B12 > 1000.0 pg/mL (239-931)
[2023-10-07 08:24] LABS: Band Neutrophils Percent 10 % (0-6); Eosinophils Absolute Manual 0.11 K/mm3 (0.02-0.5); Eosinophils Percent Manual 1 % (0-4); Metamyelocytes Percent 2 %; Monocytes Absolute Manual 0.69 K/mm3 (0.1-0.90); Monocytes Percent Manual 6 % (3-9); Neutrophils Absolute Manual 8.35 K/mm3 (1.7-7.2); Neutrophils Percent Manual 62 % (46-73); Platelet Estimate Adequate (Adequate); Schistocytes None Seen (NORMAL); Total Cells Counted 100
[2023-10-07 08:25] LABS: Hypochromasia 2+ (NORMAL)
[2023-10-07] MEDS: guaiFENesin 12 HR 600 MG TABCR PO ×2 (08:52→19:56)
[2023-10-07] MEDS: FLUTICASONE PROPIONATE 0.05% NA SPR 16 GM BTL (*BKC) 2 SPRAY NASAL (08:52)
[2023-10-07] MEDS: DOXYCYCLINE HYCLATE 100 MG TABLET PO (08:52)
--- NOTE | 2023-10-07 13:02 | PM.IMPN ---
Progress Note: A&P Assessment and Plan (1) Multifocal pneumonia: Code(s): J18.9 - Pneumonia, unspecified organism Status: Acute Assessment and Plan: CT scan shows bilateral pneumonia, worst in the right upper lobe. COVID positive several weeks ago, now with underlying bacterial pneumonia. She has been started on doxycycline, ceftriaxone, and vancomycin. Cornet and Mucinex ordered to help mobilize secretions. Attempt sputum for culture. Check urinary antigens and mycoplasma IgM. Add Pulmozyme (2) Normocytic anemia: Code(s): D64.9 - Anemia, unspecified Status: Acute Assessment and Plan: Longstanding history of anemia following gastric sleeve. Hemoglobin is lower than what she typically runs, perhaps due to acute illness. Check iron studies and stool for occult blood. (3) Chronic prescription opiate use: Code(s): Z79.891 - shelter (current) use of opiate analgesic Status: Acute Assessment and Plan: Patient has chronic neck and back pain. Continue prescribed oxycodone 10-325 mg. Plan DVT prophylaxis: Lovenox Subjective Date/time seen: 10/07/23 13:02 Interval history: Feels okay. Intermittent short of breath. Some cough Review of Systems Review of Systems: All systems reviewed & are unremarkable except as noted in HPI and below Exam Narrative: General: Moderately ill-appearing female in the semi-Lassiter position in bed. HEENT: PERRL, EOMI. Sclera anicteric. Tacky mucous membranes. Neck: Supple. No JVD or lymphadenopathy. Respiratory: Mildly tachypneic with conversational dyspnea intermittently. Decreased lung sounds heard in the right mid and upper lung zones with positive egophony and scattered, coarse wheezing. Frequent, deep cough which is essentially nonproductive. Cardiovascular: Regular rate and rhythm with S1-S2. Gastrointestinal: Abdomen is soft, nontender, and nondistended with positive bowel sounds. Skin: Warm and dry. Face is flushed. Extremities: No cyanosis, clubbing, or edema. Radial and pedal pulses intact. Neurological: Alert. Cranial nerves 2-12 are grossly intact. No gross focal deficits to casual conversation. Psychiatric: Appropriate mood and flat affect. Objective Data Vital Signs Vital Signs: Vital Signs - 24 hr 10/06/23 13:49 10/06/23 14:47 10/06/23 15:15 Temperature Pulse Rate 93 90 91 Respiratory Rate 14 25 H 22 H Blood Pressure Pulse Oximetry 99 98 Oxygen Delivery 10/06/23 18:51 10/06/23 20:32 10/06/23 20:30 Temperature 97.7 F 98.0 F Pulse Rate 94 83 Respiratory Rate 18 18 Blood Pressure 99/58 L 111/72 Pulse Oximetry 97 98 Oxygen Delivery Room Air 10/07/23 02:21 10/07/23 02:36 10/07/23 05:07 Temperature 98.0 F Pulse Rate 88 92 81 Respiratory Rate 22 H 22 H 18 Blood Pressure 114/57 L Pulse Oximetry 95 Oxygen Delivery 10/07/23 09:00 10/07/23 09:00 10/07/23 09:10 Temperature Pulse Rate 108 H 108 H 103 H Respiratory Rate 18 18 18 Blood Pressure Pulse Oximetry 95 Oxygen Delivery Room Air Intake/Output Intake/Output: Intake & Output 10/04/23 10/05/23 10/06/23 10/07/23 23:59 23:59 23:59 23:59 Intake Total 1790 1340 Output Total 600 Balance 1790 740 Meds/Results Medications: Active Medications Generic Name Dose Route Start Last Admin Trade Name Freq PRN Reason Stop Dose Admin Acetaminophen 650 mg 10/06/23 21:37 Acetaminophen 325 Mg Tablet PO Q6H PRN Mild Pain (1-3) or Fever Albuterol 2.5 mg 10/07/23 02:00 10/07/23 02:21 Albuterol Sulfate Neb 2.5 Mg/3 Ml Inh INHALATION 2.5 mg Q6HRT RENU Administration Doxycycline Hyclate 100 mg 10/07/23 09:00 10/07/23 08:52 Doxycycline Hyclate 100 Mg Tablet PO 100 mg Q12HR RENU Administration Enoxaparin Sodium 40 mg 10/07/23 09:00 10/07/23 08:45 Enoxaparin 40 Mg/0.4 Ml Syringe SUB-Q Not Given DAILY RENU Fluticasone Propionate 2 s
[2023-10-07] MEDS: oxyCODONE/ACETAMINOPHEN (*CRX) 10-325 MG TABLET 1 TAB PO ×2 (13:16→19:56)
[2023-10-07] MEDS: LORazepam (*CRX) 0.5 MG TABLET PO (13:16)
[2023-10-07] MEDS: LIDOCAINE 5% PATCH 1 PATCH TRANSDERM (15:41)
[2023-10-07] MEDS: ONDANSETRON HCL ODT 4 MG TABLET PO (18:04)
[2023-10-07] MEDS: AZITHROMYCIN 500 MG/NS 250 ML 500 MG/250 ML BAG 250 MG IVPB (19:55)
[2023-10-08] VITALS (9 sets, daily range): BP systolic 119–132; BP diastolic 75–85; PULSE 69–90; RESP 18–24; TEMP 36.3–36.9; O2SAT 94–96
[2023-10-08] MEDS: CYCLOBENZAPRINE HCL 10 MG TABLET PO (03:12)
[2023-10-08] MEDS: cefTRIAXone 2 GM/NS 100 ML 2 GM/100 ML BAG IVPB (03:12)
[2023-10-08] MEDS: oxyCODONE/ACETAMINOPHEN (*CRX) 10-325 MG TABLET 1 TAB PO ×4 (03:12→22:36)
[2023-10-08] MEDS: guaiFENesin 600 MG/DEXTROMETHORPHAN 30 MG SR TAB 12 HR 1 TAB PO ×3 (03:13→20:31)
[2023-10-08] MEDS: IPRATROPIUM BR 0.02% INH SOLN 0.5 MG/2.5 ML VIAL INHALATION ×4 (03:45→20:35)
[2023-10-08] MEDS: ALBUTEROL SULFATE NEB 2.5 MG/3 ML INH INHALATION ×4 (03:45→20:35)
[2023-10-08 05:39] LABS: Basophils Absolute Auto 0.1 K/mm3 (0.0-0.1); Basophils Percent Auto 0.7 % (0.2-1.2); Eosinophils Absolute Auto 0.3 K/mm3 (0-0.3); Eosinophils Percent Auto 2.4 % (0-4.4); Hematocrit 25.3 % (37.0-47.0); Hemoglobin 7.7 g/dL (12.0-15.0); Immature Granulocyte Absolute 1.03 K/mm3 (0.00-0.031); Immature Granulocyte Percent A 8.6 % (0-0.5); Lymphocytes Absolute Auto 1.97 K/mm3 (0.9-3.2); Lymphocytes Percent Auto 16.4 % (18.3-44.2); Mean Corpuscular HGB Conc 30.4 g/dl (32-36); Mean Corpuscular Hemoglobin 25.5 pg (26-34); Mean Corpuscular Volume 83.8 fl (80-100); Mean Platelet Volume 9.3 fl (7.4-10.4); Monocytes Absolute Auto 1.1 K/mm3 (0.1-0.6); Monocytes Percent Auto 9.1 % (2.6-8.5); Neutrophils Absolute Auto 7.6 K/mm3 (1.3-6.7); Neutrophils Percent Auto 62.8 % (45.5-73.1); Platelet Count Result 217 k/mm3 (150-375); Red Blood Count 3.02 M/mm3 (4.2-5.4); Red Cell Distribution Width 15.8 % (11.5-14.5)
[2023-10-08 05:56] LABS: Alanine Aminotransferase 16 U/L (6-35); Alkaline Phosphatase 100 U/L (38-126); Anion Gap 4 mmol/L (8-16); Aspartate Amino Transferase 24 U/L (14-36); Bilirubin,Total 0.3 mg/dL (0.2-1.3); Blood Urea Nitrogen 9 mg/dL (7-17); Calcium 8.2 mg/dL (8.4-10.2); Carbon Dioxide 28 mmol/L (22-30); Chloride 104 mmol/L (98-107); Estimated CRCL calculation 68 ml/min; Estimated Glomerular Filt Rate > 60; Glucose 98 mg/dL (65-110); Magnesium 2.2 mg/dL (1.6-2.3); Potassium 4.1 mmol/L (3.4-5.0); Sodium 136 mmol/L (137-145)
[2023-10-08] MEDS: DORNASE ALFA INH SOLN 1 MG/ML 2.5 ML AMP 2.5 MG INHALATION ×2 (07:44→20:36)
[2023-10-08] MEDS: FLUTICASONE PROPIONATE 0.05% NA SPR 16 GM BTL (*BKC) 2 SPRAY NASAL (09:54)
[2023-10-08] MEDS: LIDOCAINE 5% PATCH 1 PATCH TRANSDERM (09:54)
--- NOTE | 2023-10-08 14:18 | PM.IMPN ---
Progress Note: A&P Assessment and Plan (1) Multifocal pneumonia: Code(s): J18.9 - Pneumonia, unspecified organism Status: Acute Assessment and Plan: CT scan shows bilateral pneumonia, worst in the right upper lobe. COVID positive several weeks ago, now with underlying bacterial pneumonia. She has been started on doxycycline, ceftriaxone, and vancomycin. Cornet and Mucinex ordered to help mobilize secretions. Attempt sputum for culture. Check urinary antigens and mycoplasma IgM. Add Pulmozyme Increased ceftriaxone to 2 g daily along with IV ceftriaxone Sputum culture follow (2) Normocytic anemia: Code(s): D64.9 - Anemia, unspecified Status: Acute Assessment and Plan: Longstanding history of anemia following gastric sleeve. Hemoglobin is lower than what she typically runs, perhaps due to acute illness. Check iron studies and stool for occult blood. 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 Continue prescribed oxycodone 10-325 mg. Plan DVT prophylaxis: Lovenox Subjective Date/time seen: 10/08/23 14:18 Interval history: Feels little better. Coughing is better. Chest pain still persists. Muscle relaxers help. Chest x-ray reviewed. Review of Systems Review of Systems: All systems reviewed & are unremarkable except as noted in HPI and below Exam Narrative: General: Moderately ill-appearing female in the semi-Lassiter position in bed. HEENT: PERRL, EOMI. Sclera anicteric. Tacky mucous membranes. Neck: Supple. No JVD or lymphadenopathy. Respiratory: Mildly tachypneic with conversational dyspnea intermittently. Decreased lung sounds heard in the right mid and upper lung zones with positive egophony and scattered, coarse wheezing. Frequent, deep cough which is essentially nonproductive. Cardiovascular: Regular rate and rhythm with S1-S2. Gastrointestinal: Abdomen is soft, nontender, and nondistended with positive bowel sounds. Skin: Warm and dry. Face is flushed. Extremities: No cyanosis, clubbing, or edema. Radial and pedal pulses intact. Neurological: Alert. Cranial nerves 2-12 are grossly intact. No gross focal deficits to casual conversation. Psychiatric: Appropriate mood and flat affect. Objective Data Vital Signs Vital Signs: Vital Signs - 24 hr 10/07/23 14:24 10/07/23 19:29 10/07/23 20:17 Temperature 97.4 F L 98.8 F Pulse Rate 90 89 89 Respiratory Rate 20 22 H 18 Blood Pressure 120/76 138/76 Pulse Oximetry 96 97 Oxygen Delivery 10/07/23 20:15 10/07/23 20:00 10/08/23 03:10 Temperature 98.4 F Pulse Rate 84 Respiratory Rate 22 H Blood Pressure 132/85 Pulse Oximetry 97 96 Oxygen Delivery Room Air Room Air 10/08/23 07:45 10/08/23 08:07 10/08/23 09:50 Temperature Pulse Rate 69 83 Respiratory Rate 20 20 Blood Pressure Pulse Oximetry Oxygen Delivery Room Air 10/08/23 13:11 10/08/23 13:22 Temperature Pulse Rate 90 79 Respiratory Rate 24 H 20 Blood Pressure Pulse Oximetry Oxygen Delivery Intake/Output Intake/Output: Intake & Output 10/05/23 10/06/23 10/07/23 10/08/23 23:59 23:59 23:59 23:59 Intake Total 1790 2290 1020 Output Total 600 Balance 1790 1690 1020 Meds/Results Medications: Active Medications Generic Name Dose Route Start Last Admin Trade Name Freq PRN Reason Stop Dose Admin Acetaminophen 650 mg 10/06/23 21:37 Acetaminophen 325 Mg Tablet PO Q6H PRN Mild Pain (1-3) or Fever Albuterol 2.5 mg 10/07/23 02:00 10/08/23 13:06 Albuterol Sulfate Neb 2.5 Mg/3 Ml Inh INHALATION 2.5 mg Q6HRT RENU Administration Cyclobenzaprine HCl 10 mg 10/07/23 23:19 10/08/23 03:12 Cyclobenzaprine Hcl 10 Mg Tablet PO 10 mg DAILY PRN Administration Muscle Spasm Dornase Daniele 2.5 mg
[2023-10-08] MEDS: CYCLOBENZAPRINE HCL 5 MG TABLET 2.5 MG PO (18:29)
[2023-10-08] MEDS: LORazepam (*CRX) 0.5 MG TABLET PO (20:35)
[2023-10-08] MEDS: AZITHROMYCIN 500 MG/NS 250 ML 500 MG/250 ML BAG 250 MG IVPB (20:36)
[2023-10-09] VITALS (9 sets, daily range): BP systolic 122–134; BP diastolic 71–80; PULSE 75–82; RESP 16–22; TEMP 36.5–38.1; O2SAT 96–100
[2023-10-09] MEDS: ALBUTEROL SULFATE NEB 2.5 MG/3 ML INH INHALATION ×3 (02:01→20:59)
[2023-10-09] MEDS: IPRATROPIUM BR 0.02% INH SOLN 0.5 MG/2.5 ML VIAL INHALATION ×3 (02:01→20:59)
[2023-10-09] MEDS: MORPHINE SULFATE (*CRX) 2 MG/ML INJ IV PUSH (03:24)
[2023-10-09] MEDS: ONDANSETRON HCL ODT 4 MG TABLET PO (03:24)
[2023-10-09] MEDS: ACETAMINOPHEN 325 MG TABLET 650 MG PO (04:39)
[2023-10-09] MEDS: oxyCODONE/ACETAMINOPHEN (*CRX) 10-325 MG TABLET 1 TAB PO ×4 (04:39→23:24)
[2023-10-09 05:12] LABS: Basophils Absolute Auto 0.1 K/mm3 (0.0-0.1); Basophils Percent Auto 0.5 % (0.2-1.2); Eosinophils Absolute Auto 0.3 K/mm3 (0-0.3); Eosinophils Percent Auto 2.1 % (0-4.4); Hematocrit 28.3 % (37.0-47.0); Hemoglobin 8.5 g/dL (12.0-15.0); Immature Granulocyte Absolute 0.81 K/mm3 (0.00-0.031); Immature Granulocyte Percent A 6.5 % (0-0.5); Lymphocytes Absolute Auto 2.29 K/mm3 (0.9-3.2); Lymphocytes Percent Auto 18.5 % (18.3-44.2); Mean Corpuscular Hemoglobin 25.4 pg (26-34); Mean Corpuscular Volume 84.7 fl (80-100); Monocytes Absolute Auto 0.8 K/mm3 (0.1-0.6); Monocytes Percent Auto 6.5 % (2.6-8.5); Neutrophils Absolute Auto 8.2 K/mm3 (1.3-6.7); Neutrophils Percent Auto 65.9 % (45.5-73.1); Platelet Count Result 275 k/mm3 (150-375); Red Blood Count 3.34 M/mm3 (4.2-5.4); Red Cell Distribution Width 15.8 % (11.5-14.5); White Blood Count 12.4 K/mm3 (4.5-10.0)
[2023-10-09 05:24] LABS: Alanine Aminotransferase 24 U/L (6-35); Albumin Level 3.3 g/dL (3.5-5.1); Alkaline Phosphatase 103 U/L (38-126); Anion Gap 6 mmol/L (8-16); Aspartate Amino Transferase 40 U/L (14-36); Bilirubin,Total 0.3 mg/dL (0.2-1.3); Blood Urea Nitrogen 8 mg/dL (7-17); Calcium 8.6 mg/dL (8.4-10.2); Carbon Dioxide 26 mmol/L (22-30); Chloride 104 mmol/L (98-107); Estimated CRCL calculation 76 ml/min; Estimated Glomerular Filt Rate > 60; Glucose 91 mg/dL (65-110); Magnesium 2.2 mg/dL (1.6-2.3); Potassium 4.2 mmol/L (3.4-5.0); Sodium 136 mmol/L (137-145)
[2023-10-09] MEDS: guaiFENesin 600 MG/DEXTROMETHORPHAN 30 MG SR TAB 12 HR 1 TAB PO (10:03)
[2023-10-09] MEDS: LIDOCAINE 5% PATCH 1 PATCH TRANSDERM (10:03)
[2023-10-09] MEDS: FLUTICASONE PROPIONATE 0.05% NA SPR 16 GM BTL (*BKC) 2 SPRAY NASAL (10:03)
--- NOTE | 2023-10-09 12:40 | PM.IMPN ---
Progress Note: A&P Assessment and Plan (1) Multifocal pneumonia: Code(s): J18.9 - Pneumonia, unspecified organism Status: Acute Assessment and Plan: CT scan shows bilateral pneumonia, worst in the right upper lobe. COVID positive several weeks ago, now with underlying bacterial pneumonia. She has been started on doxycycline, ceftriaxone, and vancomycin. Cornet and Mucinex ordered to help mobilize secretions. Attempt sputum for culture. Check urinary antigens and mycoplasma IgM. Add Pulmozyme Increased ceftriaxone to 2 g daily along with IV ceftriaxone Sputum culture with [facility] Will avoid antitussives. Increase guafenesin (2) Normocytic anemia: Code(s): D64.9 - Anemia, unspecified Status: Acute Assessment and Plan: Longstanding history of anemia following gastric sleeve. Hemoglobin is lower than what she typically runs, perhaps due to acute illness. Check iron studies and stool for occult blood. 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 Continue prescribed oxycodone 10-325 mg. Plan DVT prophylaxis: Lovenox Subjective Date/time seen: 10/09/23 12:40 Interval history: Coughing up some blood streak sputum sob has imrpoved per patient Review of Systems Review of Systems: All systems reviewed & are unremarkable except as noted in HPI and below Exam Narrative: General: Moderately ill-appearing female in the semi-Lassiter position in bed. HEENT: PERRL, EOMI. Sclera anicteric. Tacky mucous membranes. Neck: Supple. No JVD or lymphadenopathy. Respiratory: Mildly tachypneic with conversational dyspnea intermittently. Decreased lung sounds heard in the right mid and upper lung zones with positive egophony and scattered, coarse wheezing. Frequent, deep cough which is essentially nonproductive. Cardiovascular: Regular rate and rhythm with S1-S2. Gastrointestinal: Abdomen is soft, nontender, and nondistended with positive bowel sounds. Skin: Warm and dry. Face is flushed. Extremities: No cyanosis, clubbing, or edema. Radial and pedal pulses intact. Neurological: Alert. Cranial nerves 2-12 are grossly intact. No gross focal deficits to casual conversation. Psychiatric: Appropriate mood and flat affect. Objective Data Vital Signs Vital Signs: Vital Signs - 24 hr 10/08/23 13:11 10/08/23 13:22 10/08/23 15:19 Temperature 97.4 F L Pulse Rate 90 79 82 Respiratory Rate 24 H 20 18 Blood Pressure 119/77 Pulse Oximetry 94 Oxygen Delivery 10/08/23 20:01 10/08/23 20:36 10/08/23 20:50 Temperature 98.2 F Pulse Rate 84 76 72 Respiratory Rate 18 20 20 Blood Pressure 124/75 Pulse Oximetry 95 Oxygen Delivery 10/09/23 04:32 10/09/23 04:39 10/09/23 05:44 Temperature 100.6 F H 100.6 F H 99.1 F Pulse Rate 82 Respiratory Rate 20 Blood Pressure 124/71 Pulse Oximetry 96 Oxygen Delivery 10/09/23 10:00 Temperature Pulse Rate Respiratory Rate Blood Pressure Pulse Oximetry Oxygen Delivery Room Air Intake/Output Intake/Output: Intake & Output 10/06/23 10/07/23 10/08/23 10/09/23 23:59 23:59 23:59 23:59 Intake Total 1790 2540 2510 590 Output Total 600 Balance 1790 1940 2510 590 Meds/Results Medications: Active Medications Generic Name Dose Route Start Last Admin Trade Name Freq PRN Reason Stop Dose Admin Acetaminophen 650 mg 10/06/23 21:37 10/09/23 04:39 Acetaminophen 325 Mg Tablet PO 650 mg Q6H PRN Administration Mild Pain (1-3) or Fever Albuterol 2.5 mg 10/07/23 02:00 10/09/23 09:40 Albuterol Sulfate Neb 2.5 Mg/3 Ml Inh INHALATION Not Given Q6HRT [facility] Cyclobenzaprine HCl 2.5 mg 10/08/23 18:12 10/08/23 18:29 Cyclobenzaprine Hcl 5 Mg Tablet PO 2.5 mg DAILY PRN Administration Muscle Spasm Enoxaparin Sodium 40
[2023-10-09] MEDS: CYCLOBENZAPRINE HCL 5 MG TABLET 2.5 MG PO (14:15)
[2023-10-09] MEDS: LORazepam (*CRX) 0.5 MG TABLET PO (20:42)
[2023-10-09] MEDS: guaiFENesin 12 HR 600 MG TABCR 1200 MG PO (20:42)
[2023-10-09] MEDS: AZITHROMYCIN 500 MG/NS 250 ML 500 MG/250 ML BAG 250 MG IVPB (20:43)
[2023-10-09] MEDS: cefTRIAXone 2 GM/NS 100 ML 2 GM/100 ML BAG IVPB ×2 (23:25)
[2023-10-10 04:44] LABS: Legionella pneumophila Ag Ur Not Detected (Not Detected)
[2023-10-10] MEDS: ONDANSETRON HCL ODT 4 MG TABLET PO ×2 (04:45→20:17)
[2023-10-10 05:00] VITALS: BP 136/85; PULSE 79; RESP 16; TEMP 36.6; O2SAT 94
[2023-10-10] MEDS: oxyCODONE/ACETAMINOPHEN (*CRX) 10-325 MG TABLET 1 TAB PO ×3 (05:20→20:16)
[2023-10-10 06:14] LABS: Basophils Absolute Auto 0.1 K/mm3 (0.0-0.1); Basophils Percent Auto 0.3 % (0.2-1.2); Eosinophils Absolute Auto 0.4 K/mm3 (0-0.3); Eosinophils Percent Auto 2.9 % (0-4.4); Hematocrit 25.3 % (37.0-47.0); Hemoglobin 7.8 g/dL (12.0-15.0); Immature Granulocyte Absolute 0.67 K/mm3 (0.00-0.031); Immature Granulocyte Percent A 4.5 % (0-0.5); Lymphocytes Absolute Auto 2.49 K/mm3 (0.9-3.2); Lymphocytes Percent Auto 16.8 % (18.3-44.2); Mean Corpuscular HGB Conc 30.8 g/dl (32-36); Mean Corpuscular Hemoglobin 25.8 pg (26-34); Mean Corpuscular Volume 83.8 fl (80-100); Mean Platelet Volume 9.1 fl (7.4-10.4); Monocytes Absolute Auto 0.8 K/mm3 (0.1-0.6); Monocytes Percent Auto 5.7 % (2.6-8.5); Neutrophils Absolute Auto 10.3 K/mm3 (1.3-6.7); Neutrophils Percent Auto 69.8 % (45.5-73.1); Nucleated Red Blood Cells Perc 0.1 % (0.0-0.2); Platelet Count Result 342 k/mm3 (150-375); Red Blood Count 3.02 M/mm3 (4.2-5.4); Red Cell Distribution Width 15.6 % (11.5-14.5); White Blood Count 14.8 K/mm3 (4.5-10.0)
[2023-10-10 06:23] LABS: Alanine Aminotransferase 24 U/L (6-35); Albumin Level 3.2 g/dL (3.5-5.1); Alkaline Phosphatase 88 U/L (38-126); Anion Gap 6 mmol/L (8-16); Aspartate Amino Transferase 30 U/L (14-36); Bilirubin,Total 0.3 mg/dL (0.2-1.3); Blood Urea Nitrogen 6 mg/dL (7-17); Calcium 8.4 mg/dL (8.4-10.2); Carbon Dioxide 24 mmol/L (22-30); Chloride 106 mmol/L (98-107); Estimated CRCL calculation 76 ml/min; Estimated Glomerular Filt Rate > 60; Glucose 106 mg/dL (65-110); Magnesium 2.2 mg/dL (1.6-2.3); Potassium 4.2 mmol/L (3.4-5.0); Sodium 136 mmol/L (137-145)
[2023-10-10] MEDS: LIDOCAINE 5% PATCH 1 PATCH TRANSDERM (08:48)
[2023-10-10] MEDS: guaiFENesin 12 HR 600 MG TABCR 1200 MG PO ×2 (08:48→20:03)
[2023-10-10 12:16] LABS: IFOB Positive Control Positive; Immunochemical Fecal Occult Bl Positive (N)
--- NOTE | 2023-10-10 12:56 | PM.IMPN ---
Progress Note: A&P Assessment and Plan (1) Multifocal pneumonia: Code(s): J18.9 - Pneumonia, unspecified organism Status: Acute Assessment and Plan: CT scan shows bilateral pneumonia, worst in the right upper lobe. COVID positive several weeks ago, now with underlying bacterial pneumonia. She has been started on doxycycline, ceftriaxone, and vancomycin. Cornet and Mucinex ordered to help mobilize secretions. Attempt sputum for culture. Check urinary antigens and mycoplasma IgM. Add Pulmozyme Increased ceftriaxone to 2 g daily along with IV ceftriaxone Sputum culture with [facility] finalized as normal respiratory kallie Will avoid antitussives. Increase guafenesin Recheck chest x-ray today (2) Normocytic anemia: Code(s): D64.9 - Anemia, unspecified Status: Acute Assessment and Plan: Longstanding history of anemia following gastric sleeve. Hemoglobin is lower than what she typically runs, perhaps due to acute illness. Check iron studies and stool for occult blood. 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 Continue prescribed oxycodone 10-325 mg. Plan DVT prophylaxis: Lovenox SCDs FOBT positive stool add PPI needs GI workup may be not stable currently unless H&H starts dropping Subjective Date/time seen: 10/10/23 12:56 Interval history: Continues to have some blood in her sputum. Shortness of breath with exertion. Remains on room air. Leg swelling is improved. Review of Systems Review of Systems: All systems reviewed & are unremarkable except as noted in HPI and below Exam Narrative: General: Moderately ill-appearing female in the semi-Lassiter position in bed. HEENT: PERRL, EOMI. Sclera anicteric. Tacky mucous membranes. Neck: Supple. No JVD or lymphadenopathy. Respiratory: Mildly tachypneic with conversational dyspnea intermittently. Decreased lung sounds heard in the right mid and upper lung zones with positive egophony and scattered, coarse wheezing. Frequent, deep cough which is essentially nonproductive. Cardiovascular: Regular rate and rhythm with S1-S2. Gastrointestinal: Abdomen is soft, nontender, and nondistended with positive bowel sounds. Skin: Warm and dry. Face is flushed. Extremities: No cyanosis, clubbing, or edema. Radial and pedal pulses intact. Neurological: Alert. Cranial nerves 2-12 are grossly intact. No gross focal deficits to casual conversation. Psychiatric: Appropriate mood and flat affect. Objective Data Vital Signs Vital Signs: Vital Signs - 24 hr 10/09/23 14:49 10/09/23 15:03 10/09/23 14:00 Temperature 98.7 F Pulse Rate 75 76 79 Respiratory Rate 22 H 22 H 16 Blood Pressure 134/80 Pulse Oximetry 98 Oxygen Delivery 10/09/23 19:57 10/09/23 21:00 10/09/23 21:11 Temperature 97.7 F Pulse Rate 82 79 80 Respiratory Rate 16 20 20 Blood Pressure 122/80 Pulse Oximetry 100 Oxygen Delivery 10/10/23 05:00 10/10/23 08:48 Temperature 98 F Pulse Rate 79 Respiratory Rate 16 Blood Pressure 136/85 Pulse Oximetry 94 Oxygen Delivery Room Air Intake/Output Intake/Output: Intake & Output 10/07/23 10/08/23 10/09/23 10/10/23 23:59 23:59 23:59 23:59 Intake Total 2540 2510 2770 1290 Output Total 600 Balance 1940 2510 2770 1290 Meds/Results Medications: Active Medications Generic Name Dose Route Start Last Admin Trade Name Freq PRN Reason Stop Dose Admin Acetaminophen 650 mg 10/06/23 21:37 10/09/23 04:39 Acetaminophen 325 Mg Tablet PO 650 mg Q6H PRN Administration Mild Pain (1-3) or Fever Albuterol 2.5 mg 10/07/23 02:00 10/10/23 08:38 Albuterol Sulfate Neb 2.5 Mg/3 Ml Inh INHALATION Not Given Q6HRT RENU [facility]
[2023-10-10] MEDS: IPRATROPIUM BR 0.02% INH SOLN 0.5 MG/2.5 ML VIAL INHALATION (13:17)
[2023-10-10] MEDS: ALBUTEROL SULFATE NEB 2.5 MG/3 ML INH INHALATION (13:17)
[2023-10-10 13:18] VITALS: PULSE 82; RESP 18
[2023-10-10 13:29] VITALS: PULSE 78; RESP 18
[2023-10-10] MEDS: PANTOPRAZOLE SODIUM IV 40 MG VIAL IV PUSH ×2 (13:43→20:04)
[2023-10-10 14:00] VITALS: BP 128/74; PULSE 76; RESP 16; TEMP 36.4; O2SAT 97
[2023-10-10] MEDS: CYCLOBENZAPRINE HCL 5 MG TABLET 2.5 MG PO (14:53)
[2023-10-10 15:36] LABS: Pneumococcal Antigen Urine Not Detected (Not Detected)
[2023-10-10] MEDS: ACETAMINOPHEN 325 MG TABLET 650 MG PO (17:57)
[2023-10-10] MEDS: AZITHROMYCIN 500 MG/NS 250 ML 500 MG/250 ML BAG 250 MG IVPB (20:02)
[2023-10-10 20:03] LABS: Mycoplasma IgM Antibody Titer 279 U/mL (<770)
[2023-10-10 20:19] VITALS: BP 100/71; PULSE 74; RESP 18; TEMP 35.9; O2SAT 95
[2023-10-10 20:30] VITALS: PULSE 74; O2SAT 95
[2023-10-10] MEDS: LORazepam (*CRX) 0.5 MG TABLET PO (21:14)
[2023-10-10] MEDS: cefTRIAXone 2 GM/NS 100 ML 2 GM/100 ML BAG IVPB (23:11)
[2023-10-11] VITALS (7 sets, daily range): BP systolic 114–130; BP diastolic 64–84; PULSE 60–92; RESP 18–24; TEMP 36.4–36.7; O2SAT 98–99
[2023-10-11] MEDS: ACETAMINOPHEN 325 MG TABLET 650 MG PO (00:26)
[2023-10-11 05:37] LABS: Basophils Absolute Auto 0.1 K/mm3 (0.0-0.1); Basophils Percent Auto 0.6 % (0.2-1.2); Eosinophils Absolute Auto 0.4 K/mm3 (0-0.3); Eosinophils Percent Auto 3.1 % (0-4.4); Hematocrit 27.1 % (37.0-47.0); Hemoglobin 7.9 g/dL (12.0-15.0); Immature Granulocyte Absolute 0.39 K/mm3 (0.00-0.031); Immature Granulocyte Percent A 3.1 % (0-0.5); Lymphocytes Absolute Auto 2.32 K/mm3 (0.9-3.2); Lymphocytes Percent Auto 18.3 % (18.3-44.2); Mean Corpuscular HGB Conc 29.2 g/dl (32-36); Mean Corpuscular Hemoglobin 25.4 pg (26-34); Mean Corpuscular Volume 87.1 fl (80-100); Mean Platelet Volume 9.3 fl (7.4-10.4); Monocytes Absolute Auto 0.6 K/mm3 (0.1-0.6); Monocytes Percent Auto 4.8 % (2.6-8.5); Neutrophils Absolute Auto 8.9 K/mm3 (1.3-6.7); Neutrophils Percent Auto 70.1 % (45.5-73.1); Platelet Count Result 422 k/mm3 (150-375); Red Blood Count 3.11 M/mm3 (4.2-5.4); Red Cell Distribution Width 15.8 % (11.5-14.5); White Blood Count 12.7 K/mm3 (4.5-10.0)
[2023-10-11 05:45] LABS: Alanine Aminotransferase 23 U/L (6-35); Albumin Level 3.2 g/dL (3.5-5.1); Alkaline Phosphatase 84 U/L (38-126); Anion Gap 8 mmol/L (8-16); Aspartate Amino Transferase 30 U/L (14-36); Bilirubin,Total 0.2 mg/dL (0.2-1.3); Blood Urea Nitrogen 7 mg/dL (7-17); Calcium 8.5 mg/dL (8.4-10.2); Carbon Dioxide 22 mmol/L (22-30); Chloride 108 mmol/L (98-107); Estimated CRCL calculation 85 ml/min; Estimated Glomerular Filt Rate > 60; Glucose 87 mg/dL (65-110); Magnesium 2.3 mg/dL (1.6-2.3); Sodium 138 mmol/L (137-145)
[2023-10-11] MEDS: oxyCODONE/ACETAMINOPHEN (*CRX) 10-325 MG TABLET 1 TAB PO ×3 (06:05→19:28)
[2023-10-11] MEDS: guaiFENesin 12 HR 600 MG TABCR 1200 MG PO ×2 (08:33→20:13)
[2023-10-11] MEDS: PANTOPRAZOLE SODIUM IV 40 MG VIAL IV PUSH ×2 (08:34→20:13)
[2023-10-11] MEDS: ALBUTEROL SULFATE NEB 2.5 MG/3 ML INH INHALATION ×2 (12:13→19:52)
[2023-10-11] MEDS: IPRATROPIUM BR 0.02% INH SOLN 0.5 MG/2.5 ML VIAL INHALATION ×2 (12:13→19:52)
[2023-10-11] MEDS: LORazepam (*CRX) 0.5 MG TABLET PO ×2 (15:21→22:35)
--- NOTE | 2023-10-11 15:54 | PM.IMPN ---
Progress Note: A&P Assessment and Plan (1) Multifocal pneumonia: Code(s): J18.9 - Pneumonia, unspecified organism Status: Acute Assessment and Plan: CT scan shows bilateral pneumonia, worst in the right upper lobe. COVID positive several weeks ago, now with underlying bacterial pneumonia. She has been started on doxycycline, ceftriaxone, and vancomycin. Cornet and Mucinex ordered to help mobilize secretions. Attempt sputum for culture. Check urinary antigens and mycoplasma IgM. Add Pulmozyme Increased ceftriaxone to 2 g daily along with IV ceftriaxone Sputum culture with [facility] finalized as normal respiratory kallie Will avoid antitussives. Increase guafenesin Recheck chest x-ray with improvement in consolidation Finished azithromycin course. Continue on IV ceftriaxone switched to oral Recheck procalcitonin to decide on duration of antibiotic course (2) Normocytic anemia: Code(s): D64.9 - Anemia, unspecified Status: Acute Assessment and Plan: Longstanding history of anemia following gastric sleeve. Hemoglobin is lower than what she typically runs, perhaps due to acute illness. Check iron studies and stool for occult blood. 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 Continue prescribed oxycodone 10-325 mg. Plan DVT prophylaxis: Lovenox SCDs FOBT positive stool add PPI needs GI workup may be not stable currently unless H&H starts dropping Subjective Date/time seen: 10/11/23 15:54 Interval history: Feeling better overall. Cough is getting less and less. Shortness of breath with exertion but overall improved. Review of Systems Review of Systems: All systems reviewed & are unremarkable except as noted in HPI and below Exam Narrative: General: Moderately ill-appearing female in the semi-Lassiter position in bed. HEENT: PERRL, EOMI. Sclera anicteric. Tacky mucous membranes. Neck: Supple. No JVD or lymphadenopathy. Respiratory: Mildly tachypneic with conversational dyspnea intermittently. Decreased lung sounds heard in the right mid and upper lung zones with positive egophony and scattered, coarse wheezing. Frequent, deep cough which is essentially nonproductive. Cardiovascular: Regular rate and rhythm with S1-S2. Gastrointestinal: Abdomen is soft, nontender, and nondistended with positive bowel sounds. Skin: Warm and dry. Face is flushed. Extremities: No cyanosis, clubbing, or edema. Radial and pedal pulses intact. Neurological: Alert. Cranial nerves 2-12 are grossly intact. No gross focal deficits to casual conversation. Psychiatric: Appropriate mood and flat affect. Objective Data Vital Signs Vital Signs: Vital Signs - 24 hr 10/10/23 20:19 10/10/23 20:30 10/11/23 03:39 Temperature 96.7 F L 97.6 F Pulse Rate 74 74 60 Respiratory Rate 18 18 Blood Pressure 100/71 130/84 Pulse Oximetry 95 95 98 Oxygen Delivery Room Air 10/11/23 08:30 10/11/23 12:14 10/11/23 12:23 Temperature Pulse Rate 72 71 Respiratory Rate 18 18 Blood Pressure Pulse Oximetry Oxygen Delivery Room Air 10/11/23 13:29 Temperature 98.1 F Pulse Rate 92 Respiratory Rate 24 H Blood Pressure 120/64 Pulse Oximetry 99 Oxygen Delivery Intake/Output Intake/Output: Intake & Output 10/08/23 10/09/23 10/10/23 10/11/23 23:59 23:59 23:59 23:59 Intake Total 2510 2770 2970 750 Output Total 100 1800 Balance 2510 2770 2870 -1050 Meds/Results Medications: Active Medications Generic Name Dose Route Start Last Admin Trade Name Freq PRN Reason Stop Dose Admin Acetaminophen 650 mg 10/06/23 21:37 10/11/23 00:26 Acetaminophen 325 Mg Tablet PO 650 mg Q6H PRN Administrat
[2023-10-11] MEDS: CYCLOBENZAPRINE HCL 5 MG TABLET 2.5 MG PO (18:24)
[2023-10-11] MEDS: cefTRIAXone 2 GM/NS 100 ML 2 GM/100 ML BAG IVPB (23:04)
[2023-10-11] MEDS: ONDANSETRON HCL ODT 4 MG TABLET PO (23:50)
[2023-10-12] VITALS (8 sets, daily range): BP systolic 102–128; BP diastolic 51–73; PULSE 69–89; RESP 18–22; TEMP 36.2–36.5; O2SAT 93–100
[2023-10-12] MEDS: oxyCODONE/ACETAMINOPHEN (*CRX) 10-325 MG TABLET 1 TAB PO ×3 (03:03→19:26)
[2023-10-12 04:51] LABS: Basophils Absolute Auto 0.1 K/mm3 (0.0-0.1); Basophils Percent Auto 0.4 % (0.2-1.2); Eosinophils Absolute Auto 0.2 K/mm3 (0-0.3); Eosinophils Percent Auto 1.7 % (0-4.4); Hematocrit 24.9 % (37.0-47.0); Hemoglobin 7.4 g/dL (12.0-15.0); Immature Granulocyte Percent A 2.1 % (0-0.5); Lymphocytes Absolute Auto 2.17 K/mm3 (0.9-3.2); Lymphocytes Percent Auto 15.3 % (18.3-44.2); Mean Corpuscular HGB Conc 29.7 g/dl (32-36); Mean Corpuscular Hemoglobin 25.3 pg (26-34); Monocytes Absolute Auto 0.6 K/mm3 (0.1-0.6); Monocytes Percent Auto 4.2 % (2.6-8.5); Neutrophils Absolute Auto 10.8 K/mm3 (1.3-6.7); Neutrophils Percent Auto 76.3 % (45.5-73.1); Platelet Count Result 529 k/mm3 (150-375); Red Blood Count 2.93 M/mm3 (4.2-5.4); Red Cell Distribution Width 15.7 % (11.5-14.5); White Blood Count 14.2 K/mm3 (4.5-10.0)
[2023-10-12 05:01] LABS: Alanine Aminotransferase 25 U/L (6-35); Albumin Level 3.1 g/dL (3.5-5.1); Alkaline Phosphatase 74 U/L (38-126); Anion Gap 5 mmol/L (8-16); Aspartate Amino Transferase 36 U/L (14-36); Bilirubin,Total 0.2 mg/dL (0.2-1.3); Blood Urea Nitrogen 7 mg/dL (7-17); Calcium 8.2 mg/dL (8.4-10.2); Carbon Dioxide 24 mmol/L (22-30); Chloride 108 mmol/L (98-107); Estimated CRCL calculation 85 ml/min; Estimated Glomerular Filt Rate > 60; Glucose 94 mg/dL (65-110); Magnesium 2.2 mg/dL (1.6-2.3); Potassium 4.1 mmol/L (3.4-5.0); Sodium 137 mmol/L (137-145)
[2023-10-12 05:20] LABS: Procalcitonin 0.2 ng/mL
[2023-10-12 05:50] LABS: Anisocytosis 2+ (NORMAL); Hypochromasia 2+ (NORMAL); Platelet Estimate Adequate (Adequate); Schistocytes Rare (NORMAL)
[2023-10-12] MEDS: guaiFENesin 12 HR 600 MG TABCR 1200 MG PO ×2 (09:12→20:30)
[2023-10-12] MEDS: PANTOPRAZOLE SODIUM IV 40 MG VIAL IV PUSH ×2 (09:12→20:31)
[2023-10-12] MEDS: FLUTICASONE PROPIONATE 0.05% NA SPR 16 GM BTL (*BKC) 2 SPRAY NASAL (09:12)
[2023-10-12] MEDS: IPRATROPIUM BR 0.02% INH SOLN 0.5 MG/2.5 ML VIAL INHALATION ×3 (09:26→21:16)
[2023-10-12] MEDS: ALBUTEROL SULFATE NEB 2.5 MG/3 ML INH INHALATION ×3 (09:26→21:16)
[2023-10-12] MEDS: LIDOCAINE 5% PATCH 1 PATCH TRANSDERM (12:08)
--- NOTE | 2023-10-12 13:52 | WPDGICN ---
Assessment and Plan Assessment and plan (1) PK (iron deficiency anemia): Code(s): D50.9 - Iron deficiency anemia, unspecified Status: Acute Assessment and Plan: Patient with anemia that appears to have developed over the last several years. Associated with vaginal bleeding she underwent of hysterectomy over the last year. During this admission was found to have persistent anemia with Hemoccult-positive stool. I would recommend that we pursue a colonoscopy an EGD to evaluate more thoroughly. However this should be deferred until after her pneumonia is treated. I would recommend that this be accomplished as an outpatient through the GI office. Continue to monitor hemoglobin intermittently during this interval. No active bleeding noted at this time. 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 HPI: June Smith is a 53 year old female Admitted with pneumonia. Patient found to be anemic with Hemoccult-positive stools. Patient reports having had anemia over the last several years. She was found to have vaginal bleeding attributed to her uterus. She underwent hysterectomy by Dr. Ricco Zelaya within the last year. Her iron studies have been low and she has required iron replacement. She has not had any prior GI evaluation. Patient denies any obvious GI bleeding. Very infrequently she may notice some blood with wiping. Patient developed pneumonia has been on the hospital since 10/05/2023. During this interval of time she has been identified as having a normochromic normocytic anemia. Stool Hemoccult was found to be positive. Review previous iron studies reveal that she has iron deficiency. Review of Systems Review of Systems: Review of systems noncontributory. [facility] Past Medical History Medical History (Updated 10/12/23 @ 13:55 by Philip Brink MD) Anxiety Attention deficit disorder Bradycardia Chronic pain syndrome Chronic prescription opiate use Polycystic ovarian syndrome Surgical History Surgical History H/O gastric sleeve History of cholecystectomy History of hysterectomy with bilateral oophorectomy (09/2022) Social History Social History (Updated 10/06/23 @ 21:45 by Jess Nance PA-C) Social History: Surrogate medical decision maker: Philip Smith, ex-. Code status: Full code. Smoking status: Never smoker Alcohol intake: current Drinks per week: 1 Alcohol use details: RARE Substance use: never Substance use type: does not use Do You Feel Safe in your Home?: Yes Lack of Transportation: No Lack of Food: Never True Current Housing: I Have Housing Concerned About Future Housing: No Difficulty Paying Gas/Electric Bills: No Difficulty Paying for Meds: No Currently Unemployed: No Education: Master's Degree or Higher Difficulty w/ Childcare or Family Care: No Living arrangements: with family Additional living arrangements comments: ex- and children Spiritual care concerns: No Agree to blood products: Yes Meds Home Medications and Allergies Home Medications Medication Instructions Recorded Confirmed Type meclizine 25 mg tablet 25 mg PO BID PRN dizziness #30 tabs 06/29/23 10/06/23 Rx naloxone 4 mg/actuation nasal spray 4 mg intranasal Q2M PRN opioid 06/29/23 10/06/23 Rx overdose #2 ea ondansetron 4 mg disintegrating 4 mg PO BID PRN Nausea #30 tabs 06/29/23 10/06/23 Rx tablet fluticasone propionate 50 2 spray intranasal DAILY #48 grams 06/30/23 10/06/23 Rx mcg/actuation nasal spray,suspension triamcinolone acetonide 0.1 % 1 applic topic
[2023-10-12] MEDS: LORazepam (*CRX) 0.5 MG TABLET PO ×2 (17:06→22:36)
--- NOTE | 2023-10-12 18:23 | PM.IMPN ---
Progress Note: A&P Assessment and Plan (1) Pneumonia: Code(s): J18.9 - Pneumonia, unspecified organism Status: Acute Plan Trend white count, possibly home tomorrow in spite of leukocytosis, she is without symptomatology and her parameters are otherwise acceptable. scd's only protonix full code Subjective Date/time seen: 10/12/23 18:23 Interval history: naoe. pt feels better. no complaints Review of Systems Review of Systems: All systems reviewed & are unremarkable except as noted in HPI and below Exam Const: General: comfortable Eyes: Pupils: Equal, round and reactive pupils present Neck: Neck: supple Resp: Effort & Inspection: normal respiratory effort Auscultation: clear to auscultation bilaterally Cardio: Rate: regular rate Rhythm: regular rhythm Extrem: General: no edema Objective Data Vital Signs Vital Signs: Vital Signs - 24 hr 10/11/23 19:46 10/11/23 19:53 10/11/23 20:00 Temperature 97.8 F Pulse Rate 84 74 72 Respiratory Rate 20 20 18 Blood Pressure 114/70 Pulse Oximetry 99 Oxygen Delivery 10/11/23 20:00 10/12/23 05:15 10/12/23 09:28 Temperature 97.1 F L Pulse Rate 69 79 Respiratory Rate 18 18 Blood Pressure 102/51 L Pulse Oximetry 93 Oxygen Delivery Room Air 10/12/23 10:05 10/12/23 09:20 10/12/23 14:30 Temperature Pulse Rate 80 76 Respiratory Rate 20 22 H Blood Pressure Pulse Oximetry Oxygen Delivery Room Air 10/12/23 14:43 10/12/23 14:00 Temperature 97.6 F Pulse Rate 80 89 Respiratory Rate 20 20 Blood Pressure 128/73 Pulse Oximetry 100 Oxygen Delivery Intake/Output Intake/Output: Intake & Output 10/09/23 10/10/23 10/11/23 10/12/23 23:59 23:59 23:59 23:59 Intake Total 2770 2970 4140 1440 Output Total 100 3200 6100 Balance 2770 2870 940 -4660 Meds/Results Medications: Active Medications Generic Name Dose Route Start Last Admin Trade Name Freq PRN Reason Stop Dose Admin Acetaminophen 650 mg 10/06/23 21:37 10/11/23 00:26 Acetaminophen 325 Mg Tablet PO 650 mg Q6H PRN Administration Mild Pain (1-3) or Fever Albuterol 2.5 mg 10/07/23 02:00 10/12/23 14:28 Albuterol Sulfate Neb 2.5 Mg/3 Ml Inh INHALATION 2.5 mg Q6HRT RENU Administration Cyclobenzaprine HCl 2.5 mg 10/11/23 16:39 10/11/23 18:24 Cyclobenzaprine Hcl 5 Mg Tablet PO 2.5 mg Q12HR PRN Administration Muscle Spasm Fluticasone Propionate 2 spray 10/07/23 09:00 10/12/23 09:12 Fluticasone Propionate 0.05% Na Spr 16 Gm Btl (*Bkc) NASAL 2 spray DAILY RENU Administration Guaifenesin 1,200 mg 10/09/23 21:00 10/12/23 09:12 Guaifenesin 12 Hr 600 Mg Tabcr PO 1,200 mg Q12HR RENU Administration Ipratropium [place] 0.5 mg 10/07/23 02:00 10/12/23 14:28 Ipratropium Br 0.02% Inh Soln 0.5 Mg/2.5 Ml Vial INHALATION 0.5 mg Q6HRT RENU Administration Lidocaine 1 patch 10/12/23 17:36 Lidocaine 5% Patch TRANSDERM DAILY PRN pain Lorazepam 0.5 mg 10/07/23 02:33 10/12/23 17:06 Lorazepam (*Crx) 0.5 Mg Tablet PO 0.5 mg Q6H PRN Administration Anxiety Meclizine HCl 25 mg 10/07/23 12:59 Meclizine Hcl 25 Mg Tablet PO BID PRN dizziness Morphine Sulfate 2 mg 10/06/23 21:37 10/09/23 03:24 Morphine Sulfate (*Crx) 2 Mg/Ml Inj IV PUSH 2 mg Q4H PRN Administration Pain Rated 7-10 Non-Formulary Medication 20 mg 10/07/23 17:00 10/09/23 02:01 Dextroamphetamine-Amphetamine [Adderall] PO 11/06/23 16:59 Not Given BID RENU Ondansetron HCl 4 mg 10/07/23 12:59 10/11/23 23:50 Ondansetron Hcl Odt 4 Mg Tablet PO 4 mg BID PRN Administration Nausea Oxycodone/Acetaminophen 1 tab 10/07/23 13:01 10/12/23 12:07 Oxycodone/Acetaminophen (*Crx) 10-325 Mg Tablet PO 1 tab Q6H PRN Administration Pain Rated 7-10 Pantoprazole Sodium 40 mg 10/10/23 21:00 10/12/23 09:12 Pantoprazole Sodium Iv 40 Mg Vial IV PU
[2023-10-12] MEDS: CYCLOBENZAPRINE HCL 5 MG TABLET 2.5 MG PO (20:30)
[2023-10-13] MEDS: oxyCODONE/ACETAMINOPHEN (*CRX) 10-325 MG TABLET 1 TAB PO (03:10)
[2023-10-13 03:14] VITALS: BP 132/83; PULSE 76; RESP 20; TEMP 37.4; O2SAT 99
[2023-10-13 04:55] LABS: Basophils Absolute Auto 0.1 K/mm3 (0.0-0.1); Basophils Percent Auto 0.5 % (0.2-1.2); Eosinophils Absolute Auto 0.2 K/mm3 (0-0.3); Eosinophils Percent Auto 1.2 % (0-4.4); Hematocrit 25.5 % (37.0-47.0); Hemoglobin 7.6 g/dL (12.0-15.0); Immature Granulocyte Absolute 0.19 K/mm3 (0.00-0.031); Immature Granulocyte Percent A 1.5 % (0-0.5); Lymphocytes Absolute Auto 2.27 K/mm3 (0.9-3.2); Lymphocytes Percent Auto 17.3 % (18.3-44.2); Mean Corpuscular HGB Conc 29.8 g/dl (32-36); Mean Corpuscular Hemoglobin 25.5 pg (26-34); Mean Corpuscular Volume 85.6 fl (80-100); Mean Platelet Volume 8.7 fl (7.4-10.4); Monocytes Absolute Auto 0.6 K/mm3 (0.1-0.6); Monocytes Percent Auto 4.7 % (2.6-8.5); Neutrophils Absolute Auto 9.8 K/mm3 (1.3-6.7); Neutrophils Percent Auto 74.8 % (45.5-73.1); Platelet Count Result 662 k/mm3 (150-375); Red Blood Count 2.98 M/mm3 (4.2-5.4); Red Cell Distribution Width 15.9 % (11.5-14.5); White Blood Count 13.1 K/mm3 (4.5-10.0)
[2023-10-13 05:07] LABS: Anion Gap 5 mmol/L (8-16); Blood Urea Nitrogen 8 mg/dL (7-17); Calcium 8.5 mg/dL (8.4-10.2); Carbon Dioxide 26 mmol/L (22-30); Chloride 107 mmol/L (98-107); Estimated CRCL calculation 85 ml/min; Estimated Glomerular Filt Rate > 60; Glucose 93 mg/dL (65-110); Magnesium 2.3 mg/dL (1.6-2.3); Potassium 4.2 mmol/L (3.4-5.0); Sodium 138 mmol/L (137-145)
[2023-10-13 05:24] LABS: Procalcitonin 0.2 ng/mL
[2023-10-13 05:31] LABS: Platelet Estimate Increased (Adequate)
[2023-10-13 05:32] LABS: Anisocytosis 1+ (NORMAL); Hypochromasia 1+ (NORMAL); Ovalocytes 1+ (NORMAL)
[2023-10-13 05:33] LABS: Schistocytes None Seen (NORMAL)
[2023-10-13 08:00] VITALS: PULSE 77; RESP 18; O2SAT 98
[2023-10-13] MEDS: IPRATROPIUM BR 0.02% INH SOLN 0.5 MG/2.5 ML VIAL INHALATION (08:00)
[2023-10-13] MEDS: ALBUTEROL SULFATE NEB 2.5 MG/3 ML INH INHALATION (08:00)
[2023-10-13 08:15] VITALS: PULSE 71; RESP 18
--- NOTE | 2023-10-13 08:52 | PM.DS ---
DS: Admitting Diagnosis Discharge Date 10/13/23 Admitting Diagnosis shortness of breath DS: Discharge Diagnosis Discharge Diagnosis (1) PK (iron deficiency anemia): Code(s): D50.9 - Iron deficiency anemia, unspecified Status: Acute (2) Chronic prescription opiate use: Code(s): Z79.891 - [facility] (current) use of opiate analgesic Status: Acute (3) Multifocal pneumonia: Code(s): J18.9 - Pneumonia, unspecified organism Status: Acute (4) Normocytic anemia: Code(s): D64.9 - Anemia, unspecified Status: Acute DS: Summary Hospital Course Hospital Course: Pt is a 53F w/ PMH anxiety, depression, chronic back pain with chronic opioid dependence, PK following gastric sleeve who presented with shortness of breath. Pt has recent COVID illness and after resolution of that she began having chills, cough, sob. She saw her doctor and was prescribed levofloxacin PO for community acquired pneumonia. She then presented to [facility] [place] for worsening symptoms. On admission CTA chest neg for PE, positive for b/l pna, worse in right upper lobe. She was treated with 7 days of ceftriaxone and her symptoms improved greatly. On 10/13 she is stable for discharge to home, not requiring o2 during her admission. Her white count is trending down, she will have a repeat CBC in 2 days to ensure complete resolution of that. Of note, her HB typically runs in the 10's and on this admission it was steady in the 7's. Stool occult resulted positive, protonix was added to her medications. GI was consulted and they recommend she follow up for endoscopies as outpatient. Otherwise, she will follow up with her PCP as well. The patient was in understanding and agreement with this plan. Pt was full code during her admission. More than 30 minutes spent on discharge planning and documentation. Time Spent with Patient Time attestation: Total time spent providing and/or coordinating discharge services: Exam Const: General: cooperative and no acute distress Resp: Effort & Inspection: normal respiratory effort Auscultation: clear to auscultation bilaterally Cardio: Rate: regular rate Rhythm: regular rhythm Heart sounds: S1 normal heart sound present and S2 normal heart sound present GI: GI Palp: No abdominal tenderness Auscultation: normal bowel sounds DS: Data Data Completed and Pending Labs on day of discharge: Labs from last 24 hours 10/13/23 04:43 WBC 13.1 H RBC 2.98 L Hgb 7.6 L Hct 25.5 L MCV 85.6 MCH 25.5 L MCHC 29.8 L RDW 15.9 H Plt Count 662 H MPV 8.7 Immature Gran % (Auto) 1.5 H Neut % (Auto) 74.8 H Lymph % (Auto) 17.3 L [place] % (Auto) 4.7 Eos % (Auto) 1.2 Baso % (Auto) 0.5 Lymph # (Auto) 2.27 [place] # (Auto) 0.6 Eos # (Auto) 0.2 Baso # (Auto) 0.1 Abs Immat Gran (auto) 0.19 H Absolute Neuts (auto) 9.8 H Absolute Nucleated RBC 0.0 Nucleated RBC % 0.0 Platelet Estimate Increased Hypochromasia 1+ Anisocytosis 1+ Ovalocytes 1+ Schistocytes None seen Sodium 138 Potassium 4.2 Chloride 107 Carbon Dioxide 26 Anion Gap 5 L BUN 8 Creatinine 0.70 Estim Creat Clear Calc 85 Estimated GFR > 60 Glucose 93 Calcium 8.5 Magnesium 2.3 Procalcitonin 0.2 Discharge Plan Discharge Attending physician on discharge: Susie Jones Consulting providers: Philip Brink Discharging Clinician: Susie Jones Patient Disposition: Home, Self-Care Activity: may shower Diet: as tolerated Stand Alone Forms: General Discharge Information Follow-up/Referrals: Philip Brink MD [Physician] - 2 Weeks Willam Nuñez MD [Primary Care Provider] - 1 Week Discharge Medications: New pantoprazole [Protonix] [address] for susp in packet 40 mg PO DAILY Qty: 30 2RF Continued meclizine 25 mg tablet 25 mg PO BID PRN (Reason: dizziness) Qty: 30 0RF ondansetron 4 mg tablet,disintegrating 4 mg PO BID PRN ([place]as[place]
[2023-10-13] MEDS: CYCLOBENZAPRINE HCL 5 MG TABLET 2.5 MG PO (09:50)
[2023-10-13] MEDS: guaiFENesin 12 HR 600 MG TABCR 1200 MG PO (09:50)
[2023-10-13] MEDS: PANTOPRAZOLE SODIUM IV 40 MG VIAL IV PUSH (09:52)
== END 2023-10-13 11:35 | disposition home or self-care (01) | DRG 139 ==
LOC: ANHED 14:52 → ANH3MEDSUR 16:31 → ANH2MED 17:46
PROVIDERS: Internal Medicine; Physician Assistant; Admitting Provider General Practice; Emergency Provider Student in an Organized Health Care Education/Training Program; PCP Family Medicine Adolescent Medicine; Visit Provider General Practice
DX: J15.9 Unspecified bacterial pneumonia (principal); D50.9 Iron deficiency anemia, unspecified; F41.9 Anxiety disorder, unspecified; F32.A Depression, unspecified; F90.0 Attention-deficit hyperactivity disorder, predominantly inattentive type; E28.2 Polycystic ovarian syndrome; R19.5 Other fecal abnormalities; Z20.822 Contact with and (suspected) exposure to COVID-19; Z86.16 Personal history of COVID-19; Z79.891 Long term (current) use of opiate analgesic; Z98.84 Bariatric surgery status; Z90.49 Acquired absence of other specified parts of digestive tract; Z90.710 Acquired absence of both cervix and uterus; Z90.722 Acquired absence of ovaries, bilateral
CPT/HCPCS: 36415; 71045; 71275; 80048; 80053; 82274; 82607; 82728; 82746; 83540; 83550; 83605; 83735; 83880; 84145; 84484; 85025; 85610; 85730; 86140; 86738; 87040; 87070; 87205; 87449; 87637; 87641; 87899; 93005; 94640; 94667; 96361; 96365; 96367; 96374; 96375; 96376; 99285; A9270; C9113; G0378; G0379; J0456; J0696; J2270; J2405; J3370; J7120; Q9967

== ENCOUNTER 2023-11-08 09:11 | Outpatient (CLI) | payer OTHER, SELFPAY ==
[2023-11-22 19:05] VITALS: BMI 31.1
--- NOTE | 2023-11-22 19:05 | WPDHOMESLEEP ---
Sleep Study - Home Unattended Date of Study: 11/08/23 Ordering Provider: Daniel Dumont DO Interpreting Provider: Karen He DO Home Sleep Study Type: Watch PAT Height: 1.6 m Weight: 79.832 kg Body Mass Index: 31.1 Neck Circumference (inches): 13.5 [place]: 8 Reason for Sleep Study Daytime hypersomnia Sleep History The patient is a 53-year-old female with anxiety, depression, ADHD, anemia, GERD, PCOS and chronic pain that had a sleep study ordered by her financial aid advisor for evaluation of sleep apnea the patient rarely awakens from sleep short of breath. She rarely awakens at night with heartburn, belching or cough. She rarely snores and is rarely loud enough that others complain. She occasionally has trouble sleeping when she has a cold. She rarely wakes up gasping for air throughout the night. He denies having breathing problems at night observed by herself or others. She frequently sweats excessively at night. He rarely has heart palpitations or irregular heartbeats during the night. She occasionally falls asleep during the day but never while driving. She rarely experiences loss of muscle tone when extremely emotional. She frequently has trouble at school or work due to sleepiness. She denies feeling unable to move while waking up or falling asleep. She denies experiencing vivid dreamlike scenes upon awakening or falling asleep. She denies feeling afraid of going to sleep. She rarely has nightmares. She rarely remembers her dreams. She frequently has thoughts racing through her mind. She occasionally feels sad, depressed and anxious. She frequently has muscular tension. She frequently notices parts of her body jerk. She rarely kicks during the night. She rarely has crawling and aching feelings in her legs and rarely has leg pain during the night. She denies grinding her teeth during sleep but frequently awakens with morning jaw pain. She is constantly bothered by pain during the day and occasionally awakened by pain during the night. She constantly wakes up feeling stiff in the morning. She constantly wakes up with sore or achy muscles. She constantly wakes up with pain in the neck, spine and other joints. She goes to bed between 10:00 p.m. to midnight on weekdays and between 10:00 p.m. to 1:00 a.m. on the weekends. It takes her 30-45 minutes to fall asleep. She wakes up 2-3 times throughout the night to urinate and is able to fall back asleep within 5-10 minutes. She wakes up between 5-10 a.m. on weekdays and between 10-11 a.m. on the weekends. She typically gets 8-12 hours of sleep per night. She will stay in bed for 1-2 hours after waking up in the morning. She currently lives with her children part-time. She denies consuming any caffeinated beverages within 2 hours of bedtime. She denies engaging in physical exercise before bedtime. He will watch television before falling asleep. She will take naps in the afternoon or the evening but they are not refreshing. She consumes 1 caffeinated beverage per day. She denies tobacco, alcohol and recreational drug use. [facility] Past Medical History Medical History Anxiety Attention deficit disorder Bradycardia Chronic pain syndrome Chronic prescription opiate use Polycystic ovarian syndrome Surgical History Surgical History H/O gastric sleeve History of cholecystectomy History of hysterectomy with bilateral oophorectomy (09/2022) Social History Social History Social History: Surrogate medical decision maker: Philip Smith, ex-. Code status: Full code. Smoking status: Never smoker Alcohol intake: current Drinks per week: 1 Alcohol use details: RARE Substance use: never Substance use type: does not use Do You Feel Safe in your Home?: Yes Lack of Transportation: No
== END 2023-11-09 07:30 | disposition home or self-care (01) ==
LOC: ANHCSM 09:16
PROVIDERS: PCP Family Medicine Adolescent Medicine; Visit Provider Internal Medicine Cardiovascular Disease
DX: G47.10 Hypersomnia, unspecified (principal); R06.83 Snoring
CPT/HCPCS: 95800

== ENCOUNTER 2023-12-19 08:26 | Outpatient (CLI) | payer OTHER, SELFPAY ==
--- NOTE | 2024-01-09 14:29 | WPDSLEEPSTUD ---
Sleep Study Date of Study: 12/19/23 Ordering Provider: VICENTE Ontiveros Interpreting Physician: Karen He DO Sleep Study Type: Polysomnogram Height: 1.6 m Weight: 83.461 kg Body Mass Index: 32.5 Neck Circumference (inches): 14 [place]: 8 Reason for Sleep Study The patient had a WatchPAT home sleep test on 11/08/2023 that showed an overall AHI of 3. Unrefreshing sleep Sleep History The patient is a 53-year-old female with anxiety, depression, ADHD, anemia, GERD, PCOS and chronic pain that had a sleep study ordered by her child care specialist for evaluation of sleep apnea the patient rarely awakens from sleep short of breath.? She rarely awakens at night with heartburn, belching or cough.? She rarely snores and is rarely loud enough that others complain.? She occasionally has trouble sleeping when she has a cold.? She rarely wakes up gasping for air throughout the night.? He denies having breathing problems at night observed by herself or others.? She frequently sweats excessively at night.? He rarely has heart palpitations or irregular heartbeats during the night.? She occasionally falls asleep during the day but never while driving.? She rarely experiences loss of muscle tone when extremely emotional.? She frequently has trouble at school or work due to sleepiness.? She denies feeling unable to move while waking up or falling asleep.? She denies experiencing vivid dreamlike scenes upon awakening or falling asleep.? She denies feeling afraid of going to sleep.? She rarely has nightmares.? She rarely remembers her dreams.??She frequently has thoughts racing through her mind.? She occasionally feels sad, depressed and anxious.??She frequently has muscular tension.? She frequently notices parts of her body jerk.? She rarely kicks during the night.? She rarely has crawling and aching feelings in her legs and rarely has leg pain during the night.? She denies grinding her teeth during sleep but frequently awakens with morning jaw pain.? She is constantly bothered by pain during the day and occasionally awakened by pain during the night.? She constantly wakes up feeling stiff in the morning.? She constantly wakes up with sore or achy muscles.? She constantly wakes up with pain in the neck, spine and other joints.? She goes to bed between 10:00 p.m. to midnight on weekdays and between 10:00 p.m. to 1:00 a.m. on the weekends.? It takes her 30-45 minutes to fall asleep.? She wakes up 2-3 times throughout the night to urinate and is able to fall back asleep within 5-10 minutes.? She wakes up between 5-10 a.m. on weekdays and between 10-11 a.m. on the weekends.? She typically gets 8-12 hours of sleep per night.? She will stay in bed for 1-2 hours after waking up in the morning.? She currently lives with her children part-time.? She denies consuming any caffeinated beverages within 2 hours of bedtime.? She denies engaging in physical exercise before bedtime.? He will watch television before falling asleep.? She will take naps in the afternoon or the evening but they are not refreshing.? She consumes 1 caffeinated beverage per day.? She denies tobacco, alcohol and recreational drug use. [facility] Past Medical History Medical History Anxiety Attention deficit disorder Bradycardia Chronic pain syndrome Chronic prescription opiate use Polycystic ovarian syndrome Surgical History Surgical History H/O gastric sleeve History of cholecystectomy History of hysterectomy with bilateral oophorectomy (09/2022) Social History Social History Social History: Surrogate medical decision maker: Philip Smith, ex-. Code status: Full code. Smoking status: Never smoker Alcohol intake: current Drinks per week: 1 Alcohol use details: RARE Substance use: never Substance use type: does not
[2024-01-09 14:37] VITALS: BMI 32.5
== END 2023-12-20 06:38 | disposition home or self-care (01) ==
PROVIDERS: PCP Family Medicine Adolescent Medicine; Visit Provider Physician Assistant
DX: G47.10 Hypersomnia, unspecified (principal); G47.61 Periodic limb movement disorder
CPT/HCPCS: 95810

== ENCOUNTER 2024-12-20 11:30 | Emergency (ER) | payer OTHER, SELFPAY ==
--- NOTE | 2024-12-20 11:31 | ED.URI ---
HPI - URI/Sore Throat General Chief Complaint: Upper Respiratory Infection Stated Complaint: Sore throat Time Seen by Provider: 12/20/24 11:31 Source: patient Mode of arrival: ambulatory Limitations: no limitations History of Present Illness HPI Narrative: June is a 54-year-old female patient presenting to the clinic today with complaints of a sore throat, nasal drainage, and fever. She reports symptoms started yesterday morning. Denies any chest pain or shortness of breath. Does have slight cough. Feels as though her lymph nodes are swollen and tender MD elicited complaint: sore throat and nasal congestion Related Data Home Medications ?Medication ?Instructions ?Recorded ?Confirmed ?Last Taken ?Type meloxicam 15 mg tablet 15 mg PO DAILY 02/27/24 11/27/24 Unknown History Allergies Allergy/AdvReac Type Severity Reaction Status Date / Time cefaclor (From Ceclor) Allergy Rash Verified 12/20/24 11:43 paroxetine (From Paxil) AdvReac Intermediate Nausea Verified 12/20/24 11:43 Review of Systems Review of Systems: Pertinent positives per HPI. Patient denies any rash, headache, visual changes, dizziness, shortness of breath, chest pain, palpitations, nausea, vomiting, diarrhea, constipation, abdominal pain, or any urinary issues. [facility] Past Medical History Medical History Multifocal pneumonia Chronic prescription opiate use Chronic pain syndrome Attention deficit disorder Bradycardia Anxiety Polycystic ovarian syndrome Surgical History Surgical History History of hysterectomy with bilateral oophorectomy (09/2022) History of cholecystectomy H/O gastric sleeve Social History Social History Social History: Surrogate medical decision maker: Philip Smith, ex-. Code status: Full code. Smoking status: Never smoker Alcohol intake: current Drinks per week: 1 Alcohol use details: RARE Substance use: never Substance use type: does not use Do You Feel Safe in your Home?: Yes Lack of Transportation: No Lack of Food: Never True Current Housing: I Have Housing Concerned About Future Housing: No Difficulty Paying Gas/Electric Bills: No Difficulty Paying for Meds: No Currently Unemployed: No Education: Master's Degree or Higher Difficulty w/ Childcare or Family Care: No Living arrangements: with family Additional living arrangements comments: ex- and children Spiritual care concerns: No Agree to blood products: Yes Comments At the time of my signature, I reviewed and agree with the nursing past medical, surgical, social, and family history. There is no relevant family history pertinent to the patient complaint. Exam Narrative: General: Well-developed, well nourished, in no apparent distress Head: Normocephalic, atraumatic Eyes: Pupils equally round and reactive to light bilaterally, EOM intact, sclera and conjunctive clear, no discharge, lids normal Ears: TMs intact and clear, ear canals clear, no drainage, grossly hearing normal. Nose: Nares patent, clear nasal discharge, no inflammation, no sinus tenderness. Mouth: Oral pharynx red with bilateral tonsillar enlargement, without lesions or masses, good dentition, MMM. Neck: Supple, trachea midline, enlargement of anterior cervical nodes, no thyroid masses or goiter palpable. Cardio: Regular rate and rhythm, s1 and s2 normal, no murmur appreciated. Resp: Clear to auscultation bilaterally, no rhonchi, rales, wheezing or rubs Course Course Emergency Course: Portions of this record may have been created with voice recognition software. Level of Care: Express Care Visit Vital Signs Vital signs: Vital Signs Temperature 36.4 C 12/20/24 11:38 Pulse Rate 65 12/20/24 11:38 Respiratory Rate 18 12/20/24 11:38 Blood Pressure 141/91 H 12/20/24 11:38 Pulse Oximetry 100 12/20/24 11:38 Oxygen Delivery Room Air 12/20/24 11:38 Temperature 36.4 C 12/20/24 11:38 Pulse Rate 65 12/20/24 11:38 Respiratory Rate 18 12/20/24 11:38 Blood Pressure 141/91 H 12/20/24 11:38 Pulse Oximetry 100 12/20/24 11:38 Oxygen Delivery Room Air 12/20/24 11:38 Vital signs reviewed MDM - URI/Sore Throat MDM Narrative Medical decision making narrative: At the time of visit patient is resting comfortably on the exam table. Patient appears to be nontoxic. Labs: Strep test and influenza testing was obtained and negative in the clinic today. We will send strep for culture Plan: I suspect patient has URI/pharyngitis. Prescription for prednisone was sent to the pharmacy. Supportive measures were discussed with the patient and they voiced understanding discharge instructions and agrees to treatment plan. Return precautions reviewed Differential Diagnosis Differential diagnosis: Likely upper respiratory infection, otitis media, sinusitis, viral infection, bronchitis, influenza, pharyngitis and other (COVID) Lab Data Labs: Lab Results 12/20/24 12/20/24 Range/Units 11:55 12:08 POC Influenza A Ag Negative (Negative) POC Influenza B Ag Negative (Negative) POC Grp A Strep Screen Negative (Negative) Discharge Plan Discharge Clinical Impression: URI (upper respiratory infection) Qualifiers: URI type: unspecified URI Qualified Code(s): J06.9 - Acute upper respiratory infection, unspecified Pharyngitis Qualifiers: Pharyngitis/tonsillitis etiology: unspecified etiology Qualified Code(s): J02.9 - Acute pharyngitis, unspecified Patient Disposition: Home, Self-Care Condition: Stable Instructions: Antibiotic Form, Pharyngitis (ED), Upper Respiratory Infection (ED), Cold Symptoms (ED) Additional Instructions: Influenza and strep test were negative in the clinic today. We will send strep for culture if this comes back positive we will contact you in place you on antibiotics at that time. Take prescription medications only as prescribed-prednisone Increase fluids and stay well hydrated Tylenol/motrin for pain/fever Flonase and OTC antihistamines as directed Vicks vapor rub to open sinuses Sinus rinses for congestion Cepacol spray, cough drops, throat lozenges, warm tea with honey/lemon, gargle salt water to soothe throat BRAT diet for diarrhea Clear liquids x 24 hours then advance as tolerated for nausea/vomiting Go to the ED if you develop a worsening in your condition- high fever not controlled by Tylenol or Motrin, dehydration, weakness, lethargy, shortness of breath, or chest pain. Follow up with your PCP in 3-5 days if symptoms persist. Patient Language: Iranian Prescriptions: New prednisone 20 mg tablet 40 mg PO DAILY 5 Days Qty: 10 0RF No Action meloxicam 15 mg tablet 15 mg PO DAILY escitalopram oxalate 20 mg tablet 20 mg PO DAILY Qty: 30 5RF naloxone 4 mg/actuation spray,non-aerosol 4 mg intranasal Q2M PRN (Reason: opioid overdose) Qty: 2 0RF Rx Instructions: spray 1 dose into ONE nostril; alternate nostrils w each dose until help arrives fluticasone propionate 50 mcg/actuation spray,suspension 2 spray intranasal DAILY Qty: 48 0RF Rx Instructions: administer into each nostril triamcinolone acetonide 0.1 % cream 1 applic topical BID Qty: 80 1RF ferrous gluconate 324 mg (38 mg iron) tablet 324 mg PO BID Qty: 60 3RF pantoprazole 40 mg tablet,delayed release (DR/EC) 40 mg PO QAM Qty: 90 2RF cyclobenzaprine 10 mg tablet 10 mg PO DAILY PRN (Reason: Muscle Spasm) Qty: 30 2RF Patient Comments: patient reports not taking full 10mg tablet; cuts into fourths for a 2.5mg dose. baclofen 10 mg tablet 10 mg PO TID PRN (Reason: muscle spasm) Qty: 30 1RF dextroamphetamine-amphetamine [Adderall] 20 mg tablet 20 mg PO BID Qty: 60 0RF Rx Instructions: administer doses at least 4-6 hours apart lorazepam 0.5 mg tablet 0.5 mg PO TID PRN (Reason: Anxiety) Qty: 50 1RF oxycodone-acetaminophen 10-325 mg tablet 1 tablet PO QID PRN (Reason: pain) Qty: 120 0RF Follow-up/Referrals: Willam Nuñez MD [Primary Care Provider] - Stand Alone Forms: Work/School Release IP Time of Disposition: 12:11 Quality NIHSS Nursing Documentation ED NIHSS nursing documentation: reviewed/agree
[2024-12-20 11:38] VITALS: BP 141/91; PULSE 65; RESP 18; TEMP 36.4; O2SAT 100
[2024-12-20 11:57] LABS: EDSTREPNEGPOS1 Negative (Negative)
[2024-12-20 12:12] LABS: EDINFLUASCREEN Negative (Negative); EDINFLUBSCREEN Negative (Negative)
== END 2024-12-20 12:18 | disposition home or self-care (01) ==
PROVIDERS: Emergency Provider Nurse Practitioner Family; PCP Family Medicine Adolescent Medicine
DX: J06.9 Acute upper respiratory infection, unspecified (principal); J02.9 Acute pharyngitis, unspecified; E28.2 Polycystic ovarian syndrome; F41.9 Anxiety disorder, unspecified; F98.8 Other specified behavioral and emotional disorders with onset usually occurring in childhood and adolescence; Z98.84 Bariatric surgery status
CPT/HCPCS: 87081; 87804; 87880; 99213; G0463